=== PATIENT | female | born 1990 | race Caucasian/White ===

== ENCOUNTER 2017-05-01 13:37 | Emergency (ER) | payer MEDICAID ==
[~2017-05-01] VITALS: Ht 182.9 cm; Wt 106.7 kg
[~2017-05-01 13:37] MED LIST: AMBI5TAB PO; CALC250 PO; CIPR500T4 PO; HYDR-4197 PO; HYDR200T42 PO; RIVA10 PO; SERT100 PO
[2017-05-01 13:57] VITALS: BP 137/76; PULSE 84; RESP 16; TEMP 97.8; O2SAT 99
[2017-05-01] MEDS ORDERED: ZOLO100T PO (14:09)
[2017-05-01] MEDS ORDERED: PLAQ200T PO (14:09)
[2017-05-01] MEDS ORDERED: SODIUM CHLOR 0.9% 1000 ML INJ 1,000 ML IV SCH (14:40)
[2017-05-01] MEDS ORDERED: HYDROmorphone HCL PF 1 MG/ML VIAL IVS ONE (14:45)
[2017-05-01] MEDS ORDERED: SODIUM CHLORIDE 0.9% FLUSH 10 ML FLUSH IV FLUSH PRN (14:45)
[2017-05-01] MEDS ORDERED: ONDANSETRON HCL 4 MG/2 ML VIAL IVP ONE (14:45)
--- NOTE | 2017-05-01 14:48 | PD ---
HPI Chief Complaint: Flank/Kidney Pain Time Seen by Provider: 14:40 Travel History International Travel<30 days: No Contact w/Intl Traveler<30days: No Traveled to known affect area: No History of Present Illness HPI 27-year-old female with history of lupus, currently on Plaquenil, presents to the ER today because she has had a week and a half history of nausea, vomiting, abdominal pains, and bilateral back pains. She has been feeling feverish but denies any other issues. She denies any unusual vaginal discharge. Pain is currently rated a 5 at 10. Modifying Factors: None Associated Signs & Symptoms: Abdominal pain, bilateral back pains, nausea and vomiting Risk Factors: None PFSH Past Medical History Hx Anticoagulant Therapy: Yes (LOVENOX) Anemia: Yes Arthritis: Yes Asthma: Yes Autoimmune Disease: Yes (Lupus) Blood Disorders: No Anxiety: No Depression: No Heart Rhythm Problems: No Cancer: No Cardiovascular Problems: No High Cholesterol: No Chest Pain: No Congestive Heart Failure: No COPD: No Cerebrovascular Accident: No Diabetes: No Diminished Hearing: No Endocrine: No Gastrointestinal Disorders: No GERD: No Genitourinary: No Headaches: Yes Hepatitis: No Hiatal Hernia: No Hypertension: Yes (Patient denies ) Immune Disorder: No Implanted Vascular Access Dvce: No Kidney Stones: No Musculoskeletal: Yes Neurologic: No Psychiatric: No Reproductive: No Respiratory: Yes (ASTHMA) Migraines: Yes Renal Failure: No Seizures: No Sickle Cell Disease: No Sleep Apnea: No Thyroid Disease: No Ulcer: No Tetanus Vaccination: < 5 Years Influenza Vaccination: Yes ?: Not LMP: 04/21/17 : 2 Para: 2 Ovarian Cysts: Yes Tubal Ligation: Yes Past Surgical History Abdominal Surgery: Yes AICD: No Arteriovenous Shunt: No Body Medical Devices: Hardware Lt. hip Cardiac Surgery: No Section: Yes (X's 2) Cholecystectomy: Yes Ear Surgery: No Endocrine Surgery: No Eye Surgery: No Genitourinary Surgery: Yes Gynecologic Surgery: Yes (C SECTION, TUBAL LIGATION) Insulin Pump: No Joint Replacement: No Oral Surgery: Yes (TONSILLECTOMY) Pacemaker: No Thoracic Surgery: No Tonsillectomy: Yes Other Surgery: Yes (Cystoscopy, tissue removal arm abscess) Family History Family Hypercholesterolemia: Yes Social History Alcohol Use: Yes (Occ.) Tobacco Use: Yes (1/2 PPD) Substance Use: No Allergies-Medications (Allergen,Severity, Reaction): Coded Allergies: Darvocet-N 100 (Verified Allergy, Severe, 05/01/17) Flexeril (Verified Allergy, Mild, Rash, 05/01/17) Ibuprofen (Verified Allergy, Unknown, Rash, 05/01/17) Lortab (Verified Allergy, Unknown, Rash, 05/01/17) Naproxen (Verified Allergy, Unknown, Rash, 05/01/17) Percocet (Verified Allergy, Unknown, Rash, 05/01/17) Tramadol (Verified Allergy, Unknown, Rash, 05/01/17) Tylenol (Verified Allergy, Unknown, Rash, 05/01/17) Reported Meds & Prescriptions Reported Meds & Active Scripts Active Reported Zoloft (Sertraline HCl) 100 Mg Tab 200 Mg PO DAILY Plaquenil (Hydroxychloroquine Sulfate) 200 Mg Tab 100 Mg PO TID Take with food Review of Systems Except as stated in HPI: all other systems reviewed are Neg Physical Exam Narrative GENERAL: Well-developed young white female patient currently in mild distress. Awake and oriented 3. SKIN: Focused skin assessment warm/dry. HEAD: Atraumatic. Normocephalic. EYES: Pupils equal and round. No scleral icterus. No injection or drainage. ENT: No nasal bleeding or discharge. Mucous membranes pink and moist. NECK: Trachea midline. No JVD. CARDIOVASCULAR: Regular rate and rhythm. No murmur appreciated. RESPIRATORY: No accessory muscle use. Clear to auscultation. Breath sounds equal bilaterally. GASTROINTESTINAL: Abdomen soft, mild suprapubic tenderness without guarding or rebound, nondistended. Hepatic and splenic margins not palpable. MUSCULOSKELETAL: No obvious deformities. No clubbing. No cyanosis. No edema. BACK: Mild bilateral CVA tenderness. No rash. No point tenderness on palpation of the spine. NEUROLOGICAL: Awake and alert. No obvious cranial nerve deficits. Motor grossly within normal limits. Normal speech. PSYCHIATRIC: Appropriate mood and affect; insight and judgment normal. Data Data Last Documented VS Vital Signs Date Time Temp Pulse Resp B/P Pulse Ox O2 Delivery O2 Flow Rate FiO2 05/01/17 15:55 68 14 119/64 100 Room Air 05/01/17 13:57 97.8 Orders Complete Blood Count With Diff (05/01/17 14:40) Comprehensive Metabolic Panel (05/01/17 14:40) Lipase (05/01/17 14:40) Urinalysis - C+S If Indicated (05/01/17 14:40) Ct Abd/Pel W/O Iv Contrast (05/01/17 14:40) Iv Access Insert/Monitor (05/01/17 14:40) Ecg Monitoring (05/01/17 14:40) Oximetry (05/01/17 14:40) Ondansetron Inj (Zofran Inj) (05/01/17 14:45) Sodium Chlor 0.9% 1000 Ml Inj (Ns 1000 M (05/01/17 14:40) Sodium Chloride 0.9% Flush (Ns Flush) (05/01/17 14:45) Hydromorphone Pf Inj (Dilaudid Pf Inj) (05/01/17 14:45) Ed Urine Pregnancytest Poc (05/01/17 14:40) Urine Culture (05/01/17 15:45) Labs Laboratory Tests Test 05/01/17 05/01/17 05/01/17 14:50 15:32 15:45 White Blood Count 9.0 TH/MM3 Red Blood Count 4.52 MIL/MM3 Hemoglobin 13.1 GM/DL Hematocrit 39.4 % Mean Corpuscular Volume 87.1 FL Mean Corpuscular Hemoglobin 29.0 PG Mean Corpuscular Hemoglobin 33.2 % Concent Red Cell Distribution Width 16.8 % Platelet Count 414 TH/MM3 Mean Platelet Volume 8.2 FL Neutrophils (%) (Auto) 84.3 % Lymphocytes (%) (Auto) 10.5 % Monocytes (%) (Auto) 2.7 % Eosinophils (%) (Auto) 0.4 % Basophils (%) (Auto) 2.1 % Neutrophils # (Auto) 7.7 TH/MM3 Lymphocytes # (Auto) 0.9 TH/MM3 Monocytes # (Auto) 0.2 TH/MM3 Eosinophils # (Auto) 0.0 TH/MM3 Basophils # (Auto) 0.2 TH/MM3 CBC Comment DIFF FINAL Differential Comment Sodium Level 142 MEQ/L Potassium Level 3.6 MEQ/L Chloride Level 111 MEQ/L Carbon Dioxide Level 23.5 MEQ/L Anion Gap 8 MEQ/L Blood Urea Nitrogen 8 MG/DL Creatinine 0.65 MG/DL Estimat Glomerular Filtration 109 ML/MIN Rate Random Glucose 85 MG/DL Calcium Level 8.5 MG/DL Total Bilirubin 0.7 MG/DL Aspartate Amino Transf 110 U/L (AST/SGOT) Alanine Aminotransferase 65 U/L (ALT/SGPT) Alkaline Phosphatase 101 U/L Total Protein 7.1 GM/DL Albumin 2.9 GM/DL Lipase 59 U/L Urine Collection Type CLEAN CATCH Urine Color YELLOW Urine Turbidity MOD Urine pH 6.0 Urine Specific [place] 1.020 Urine Protein TRACE mg/dL Urine Glucose (UA) NEG mg/dL Urine Ketones 40 mg/dL Urine Occult Blood MOD Urine Nitrite POS Urine Bilirubin NEG Urine Leukocyte Esterase SMALL Urine RBC 10-14 /hpf Urine WBC 25-49 /hpf Urine WBC Clumps FEW Urine Squamous Epithelial > 8 /hpf Cells Urine Amorphous Sediment FEW Urine Bacteria MOD /hpf Microscopic Urinalysis Comment CULTURE INDICATED Urine Collection Time 1545 MDM Medical Decision Making Medical Screen Exam Complete: Yes Emergency Medical Condition: Yes Medical Record Reviewed: Yes Interpretation(s) Laboratory Tests Test 05/01/17 05/01/17 05/01/17 14:50 15:32 15:45 Neutrophils (%) (Auto) 84.3 % (16.0-70.0) Basophils (%) (Auto) 2.1 % (0.0-2.0) Lymphocytes # (Auto) 0.9 TH/MM3 (1.0-4.8) Chloride Level 111 MEQ/L (98-107) Aspartate Amino Transf 110 U/L (15-37) (AST/SGOT) Alanine Aminotransferase 65 U/L (10-53) (ALT/SGPT) Albumin 2.9 GM/DL (3.4-5.0) Lipase 59 U/L (73-393) Urine Turbidity MOD (CLEAR) Urine Ketones 40 mg/dL (NEG) Urine Occult Blood MOD (NEG) Urine Nitrite POS (NEG) Urine Leukocyte Esterase SMALL (NEG) Urine RBC 10-14 /hpf (0-3) Urine WBC 25-49 /hpf (0-5) Urine WBC Clumps FEW (NONE) Urine Squamous Epithelial > 8 /hpf (0-5) Cells Urine Bacteria MOD /hpf (NONE) Last 24 hours Impressions Abdomen/Pelvis CT 05/01/17 1440 Signed Impressions: Service Date/Time: Monday, May 01, 2017 16:09 - CONCLUSION: 1. 1.5 cm cystic mass right adnexa region. 2. Nonobstructing 3 mm stone left kidney. 3. 1 mm stone middle third right ureter Felix Epperson MD FACR Differential Diagnosis Lower abdominal and back pains, suprapubic tenderness, nausea and vomiting renal colic versus pyelonephritis/UTI versus gastroenteritis versus dehydration versus metabolic issues Narrative Course UA significant for UTI. CT does show a 1 mm stone at the left mid ureter. Patient has been given IV fluids, Dilaudid, and Zofran in the ER. She was also given 1 dose of by mouth antibiotics in the ER. At this point, my plan would be to release her with symptomatic relief or pain, nausea, and antibiotic. She will need to follow-up with primary care physician and urology regarding this issue. Return for any worsening in symptoms as needed. The plan has been discussed with her and she states understanding. Diagnosis Primary Impression: UTI (urinary tract infection) Additional Impression: Renal colic Med/Other Pt SpecificInfo: Prescription(s) given Scripts Phenazopyridine (Pyridium)100 Mg [id number] Mg PO Q8H PRN (DYSURIA) #12 TAB Ref 0 Prov:Shae Giang MD 05/01/17 Ondansetron Odt (Zofran Odt)4 Mg Tab4 Mg SL Q6HR PRN (Nausea/Vomiting) #7 TAB Ref 0 Prov:Shae Giang MD 05/01/17 Sulfamethoxazole-Trimethoprim (Bactrim DS)800-160 Mg Tab1 Tab PO BID #14 TAB Ref 0 Prov:Shae Giang MD 05/01/17 Disposition: 01 DISCHARGE HOME Condition: Stable Shae Giang MD May 01, 2017 14:48
[2017-05-01 14:56] LABS: AUTOMATED NEUTROPHIL # 7.7 TH/MM3 (1.8-7.7); BASOPHIL # 0.2 TH/MM3 (0-0.2); BASOPHIL % 2.1 % (0.0-2.0); EOSINOPHIL % 0.4 % (0.0-4.0); HEMATOCRIT 39.4 % (35.0-46.0); HEMO FLAGS DIFF FINAL; LYMPH % 10.5 % (9.0-44.0); LYMPHOCYTE # 0.9 TH/MM3 (1.0-4.8); MEAN CELL VOLUME 87.1 FL (80.0-100.0); MEAN CORPUSCULAR HGB CONC 33.2 % (32.0-36.0); MONO % 2.7 % (0.0-8.0); NEUT % 84.3 % (16.0-70.0); PLATELET COUNT 414 TH/MM3 (150-450); RED BLOOD COUNT 4.52 MIL/MM3 (4.00-5.30); RED CELL DISTRIBUTION WIDTH 16.8 % (11.6-17.2)
[2017-05-01 15:00] VITALS: O2SAT 99
[2017-05-01 15:55] VITALS: BP 119/64; PULSE 68; RESP 14; O2SAT 100
[2017-05-01 15:58] LABS: CHLORIDE 111 MEQ/L (98-107); POTASSIUM 3.6 MEQ/L (3.5-5.1); SODIUM (NA) 142 MEQ/L (136-145)
[2017-05-01 16:01] LABS: GLUCOSE,URINE NEG (NEG); KETONE, URINE 40 mg/dL (NEG)
[2017-05-01 16:02] LABS: ANION GAP 8 MEQ/L (5-15); BICARBONATE 23.5 MEQ/L (21.0-32.0); BLOOD UREA NITROGEN 8 MG/DL (7-18)
[2017-05-01 16:05] LABS: BLOOD, URINE MOD (NEG); NITRITE,URINE POS (NEG)
[2017-05-01 16:05] LABS: ALT (GPT) 65 U/L (10-53); AST (GOT) 110 U/L (15-37); GLOMERULAR FILTRATION RATE 109 ML/MIN (>89)
[2017-05-01 16:06] LABS: TOTAL BILIRUBIN ADULT 0.7 MG/DL (0.2-1.0)
[2017-05-01 16:08] LABS: ALKALINE PHOSPHATASE 101 U/L (45-117)
[2017-05-01 16:24] LABS: METHOD OF COLLECTION CLEAN CATCH; URINE COLOR YELLOW (YELLW/STRAW)
[2017-05-01 16:25] LABS: COMMENT (UR) CULTURE INDICATED; CULTURE IF INDICATED CULTURE INDICATED; SQUAMOUS EPITHELIAL CELL URINE > 8 /hpf (0-5)
[2017-05-01 16:26] LABS: BACTERIA, URINE MOD /hpf
--- NOTE | 2017-05-01 16:33 | RADHPO ---
EXAM DATE/TIME: 05/01/2017 16:09 [facility] COMPARISON: No previous studies available for comparison. INDICATIONS : Right flank and epigastric pain. ORAL CONTRAST: No oral contrast ingested. RADIATION DOSE: 23.79 CTDIvol (mGy) MEDICAL HISTORY : Hypertension. Anticoagulant therapy SURGICAL HISTORY : section. Cholecystectomy.Tubal ligation. ENCOUNTER: Initial ACUITY: 2 weeks PAIN SCALE: 6/10 LOCATION: Right flank TECHNIQUE: Volumetric scanning of the abdomen and pelvis was performed. Using automated exposure control and ad justment of the mA and/or kV according to patient size, radiation dose was kept as low as reasonably achievable to obtain optimal diagnostic quality images. FINDINGS: LOWER LUNGS: The visualized lower lungs are clear. GE junctional is unremarkable LIVER: Homogeneous density without lesion. There is no dilation of the biliary tree. No calcified gallston es. SPLEEN: Normal size without lesion. PANCREAS: Within normal limits. ADRENAL GLANDS: Within normal limits. KIDNEYS: There is again nonobstructing 2 mm stone or pole left kidney. There is an 81 mm stone middle third o f the right ureter. CECUM : The region of the cecum and terminal ileum appear normal. RETROPERITONEAL: There is no adenopathy PELVIS: 1.5 cm cystic right adnexal mass is noted. Multiple phleboliths are present in the pelvis. ABDOMINAL WALL: Small hernia containing fat just below the umbilicus. BONE WINDOWS: Degenerative changes are seen about both SI joints. CONCLUSION: 1. 1.5 cm cystic mass right adnexa region. 2. Nonobstructing 3 mm stone left kidney. 3. 1 mm stone middle third right ureter Felix Epperson MD FACR on May 01, 2017 at 16:27 Board Certified Radiologist. This report was verified electronically.
[2017-05-01] MEDS ORDERED: SULFAMETHOXAZOLE-TRIMETHOPRIM DS 800-160 MG TAB PO ONE (16:45)
[2017-05-01] MEDS ORDERED: ONDANSETRON HCL 4 MG/2 ML VIAL IV PUSH ONE (16:45)
[2017-05-01] MEDS ORDERED: HYDROmorphone HCL PF 1 MG/ML VIAL IV PUSH ONE (16:45)
[2017-05-01] MEDS ORDERED: BACT800T5 PO (16:49)
[2017-05-01] MEDS ORDERED: ZOFR4TAB3 SL (16:49)
[2017-05-01] MEDS ORDERED: PHEN0.4T PO (16:49)
[2017-05-01 17:35] VITALS: BP 110/70; PULSE 78; RESP 16; O2SAT 98
== END 2017-05-01 17:35 | disposition home or self-care (01) ==
LOC: PHED 13:37
DX: N39.0 Urinary tract infection, site not specified (principal); N23 Unspecified renal colic; B96.20 Unspecified Escherichia coli [E. coli] as the cause of diseases classified elsewhere; J45.909 Unspecified asthma, uncomplicated; M32.9 Systemic lupus erythematosus, unspecified; D64.9 Anemia, unspecified; F17.210 Nicotine dependence, cigarettes, uncomplicated; Z79.01 Long term (current) use of anticoagulants
CPT/HCPCS: 74176; 80053; 81001; 83690; 84703; 85025; 87077; 87086; 87186; 96361; 96374; 96375; 96376; 99285; J1170; J2405; J7030

== ENCOUNTER 2017-06-05 20:12 | Emergency (ER) | payer MEDICAID ==
[~2017-06-05] VITALS: Ht 182.9 cm; Wt 106.0 kg
[~2017-06-05 20:12] MED LIST changes: -AMBI5TAB PO; +BACT800T5 PO; -CALC250 PO; -CIPR500T4 PO; -HYDR-4197 PO; -HYDR200T42 PO; +PHEN0.4T PO; +PLAQ200T PO; -RIVA10 PO; -SERT100 PO; +ZOFR4TAB3 SL; +ZOLO100T PO
[2017-06-05 20:20] VITALS: BP 140/85; PULSE 104; RESP 14; TEMP 98.5; O2SAT 100
[2017-06-05 20:41] VITALS: BP 134/87; PULSE 99; RESP 18; O2SAT 100
--- NOTE | 2017-06-05 20:55 | PD ---
HPI Chief Complaint: Hip Injury Time Seen by Provider: 20:28 Travel History International Travel<30 days: No Contact w/Intl Traveler<30days: No Traveled to known affect area: No History of Present Illness HPI 27-year-old female complains of left hip pain and left thigh pain. Patient fell and landed on the left leg last night. Patient denies any loss of consciousness. Patient denies any headache or neck pain. Patient denies any chest pain or shortness of breath. Patient complained of painful rash on the right heel area for the past several days. Patient denies any abdominal pain. Patient denies any back pain. Patient denies any other extremity injury. Patient has history of lupus. Patient also awaiting oral surgery and on penicillin and another antibiotic. PFSH Past Medical History Hx Anticoagulant Therapy: Yes (LOVENOX) Anemia: Yes Arthritis: Yes Asthma: Yes Autoimmune Disease: Yes (Lupus) Blood Disorders: No Anxiety: No Depression: No Heart Rhythm Problems: No Cancer: No Cardiovascular Problems: No High Cholesterol: No Chest Pain: No Congestive Heart Failure: No COPD: No Cerebrovascular Accident: No Diabetes: No Diminished Hearing: No Endocrine: No Gastrointestinal Disorders: No GERD: No Genitourinary: No Headaches: Yes Hepatitis: No Hiatal Hernia: No Hypertension: Yes (Patient denies ) Immune Disorder: No Implanted Vascular Access Dvce: No Kidney Stones: No Musculoskeletal: Yes Neurologic: No Psychiatric: No Reproductive: No Respiratory: Yes (ASTHMA) Migraines: Yes Renal Failure: No Seizures: No Sickle Cell Disease: No Sleep Apnea: No Thyroid Disease: No Ulcer: No ?: Not LMP: 2 weeks : 2 Para: 2 Ovarian Cysts: Yes Tubal Ligation: Yes Past Surgical History Abdominal Surgery: Yes AICD: No Arteriovenous Shunt: No Body Medical Devices: Hardware Lt. hip Cardiac Surgery: No Section: Yes (X's 2) Cholecystectomy: Yes Ear Surgery: No Endocrine Surgery: No Eye Surgery: No Genitourinary Surgery: Yes Gynecologic Surgery: Yes (C SECTION, TUBAL LIGATION) Insulin Pump: No Joint Replacement: No Oral Surgery: Yes (TONSILLECTOMY) Pacemaker: No Thoracic Surgery: No Tonsillectomy: Yes Other Surgery: Yes (Cystoscopy, tissue removal arm abscess) Family History Family Hypercholesterolemia: Yes Social History Alcohol Use: Yes (Occ.) Tobacco Use: Yes (1/2 PPD) Substance Use: No Allergies-Medications (Allergen,Severity, Reaction): Coded Allergies: Darvocet-N 100 (Verified Allergy, Severe, 06/05/17) Flexeril (Verified Allergy, Mild, Rash, 06/05/17) Ibuprofen (Verified Allergy, Unknown, Rash, 06/05/17) Lortab (Verified Allergy, Unknown, Rash, 06/05/17) Naproxen (Verified Allergy, Unknown, Rash, 06/05/17) Percocet (Verified Allergy, Unknown, Rash, 06/05/17) Tramadol (Verified Allergy, Unknown, Rash, 06/05/17) Tylenol (Verified Allergy, Unknown, Rash, 06/05/17) Reported Meds & Prescriptions Reported Meds & Active Scripts Active Pyridium (Phenazopyridine HCl) 100 Mg Tab 100 Mg PO Q8H PRN Zofran Odt (Ondansetron Odt) 4 Mg Tab 4 Mg SL Q6HR PRN Bactrim DS (Sulfamethoxazole-Trimethoprim) 800-160 Mg Tab 1 Tab PO BID Reported Zoloft (Sertraline HCl) 100 Mg Tab 200 Mg PO DAILY Plaquenil (Hydroxychloroquine Sulfate) 200 Mg Tab 100 Mg PO TID Take with food Review of Systems General / Constitutional: No: Fever Eyes: No: Visual changes HENT: No: Headaches Cardiovascular: No: Chest Pain or Discomfort Respiratory: No: Shortness of Breath Gastrointestinal: No: Abdominal Pain Genitourinary: No: Dysuria Musculoskeletal: Positive: Pain Skin: No Rash Neurologic: No: Weakness Psychiatric: No: Depression Endocrine: No: Polydipsia Hematologic/Lymphatic: No: Easy Bruising Physical Exam Narrative GENERAL: Well-nourished, well-developed patient. SKIN: Focused skin assessment warm/dry. Patient has redness papular rash on the right axilla. Mild tenderness on palpation. No induration noted. HEAD: Normocephalic. EYES: No scleral icterus. No injection or drainage. NECK: Supple, trachea midline. No JVD or lymphadenopathy. CARDIOVASCULAR: Regular rate and rhythm without murmurs, gallops, or rubs. RESPIRATORY: Breath sounds equal bilaterally. No accessory muscle use. GASTROINTESTINAL: Abdomen soft, non-tender, nondistended. MUSCULOSKELETAL: No cyanosis, or edema. BACK: Nontender without obvious deformity. No CVA tenderness. Patient has moderate tenderness and palpation lateral aspect the left hip joint and lateral aspect the left thigh. Limited range of motion of the left hip. Sensorimotor function distally intact. Data Data Last Documented VS Vital Signs Date Time Temp Pulse Resp B/P Pulse Ox O2 Delivery O2 Flow Rate FiO2 06/05/17 20:41 98 18 100 Room Air 06/05/17 20:41 134/87 06/05/17 20:20 98.5 Orders Femur (Ap & Lat/2vws) (06/05/17 20:37) Hip, Uni(Ap&Lat) W Ap Pelvis (06/05/17 20:37) MDM Medical Decision Making Medical Screen Exam Complete: Yes Emergency Medical Condition: Yes Interpretation(s) 21:44 PM. X-ray of the left hip and left femur shows no acute bony injury. Loosening of the surgical nail. Differential Diagnosis Differential diagnosis: Contusion, fracture, dislocation, folliculitis, cellulitis, abscess. Narrative Course 19-year-old female with left hip and left thigh injury. Status post fall. Patient also had painful rash on the right axilla. Diagnosis Primary Impression: Contusion of left hip Qualified Code: S70.02XA - Contusion of left hip, initial encounter Additional Impression: Folliculitis Patient Instructions: General Instructions Med/Other Pt SpecificInfo: Prescription(s) given Scripts Doxycycline Hyclate 100 Mg [id number] Mg PO BID #20 TAB Prov:Sujit Desir MD 06/05/17 Disposition: 01 DISCHARGE HOME Condition: Stable Sujit Desir MD Jun 05, 2017 20:55
[2017-06-05 21:20] VITALS: BP 135/77; PULSE 85; RESP 18; O2SAT 100
--- NOTE | 2017-06-05 21:36 | RADRPT ---
EXAM DATE/TIME: 06/05/2017 20:48 [facility] COMPARISON: HIP LEFT (AP&LAT 2/3VWS) W AP PELVIS, April 25, 2016, 12:32. INDICATIONS : Trauma, fall. MEDICAL HISTORY : None. SURGICAL HISTORY : ORIF left femur. ENCOUNTER: Initial ACUITY: 2 days PAIN SCORE: 8/10 LOCATION: Left pelvis hip. FINDINGS: Evidence for previous pinning of the left hip is noted. Troch nail evident. Alignment is anatomic. There is some evidence for loosening about the troch nail. CONCLUSION: Evidence for loosening about the troch nail. Felix Epperson MD FACR on June 05, 2017 at 21:30 Board Certified Radiologist. This report was verified electronically.
--- NOTE | 2017-06-05 21:38 | RADRPT ---
EXAM DATE/TIME: 06/05/2017 21:10 [facility] COMPARISON: FEMUR LEFT (AP & LAT/2VWS), April 26, 2016, 17:22. INDICATIONS : Trauma, fall. MEDICAL HISTORY : None. SURGICAL HISTORY : ORIF left femur. ENCOUNTER: Initial ACUITY: 2 days PAIN SCORE: 8/10 LOCATION: Left femur. FINDINGS: Troch nail is seen bridging an old trochanteric fracture. There is evidence for loosening with the d istal pin backing out. There is lucency about the proximal intramedullary nail. CONCLUSION: Evidence for loosening as described above. Felix Epperson MD FACR on June 05, 2017 at 21:28 Board Certified Radiologist. This report was verified electronically.
[2017-06-05] MEDS ORDERED: DOXY100T PO (21:50)
== END 2017-06-05 22:16 | disposition home or self-care (01) ==
LOC: PHED 20:12
DX: S70.02XA Contusion of left hip, initial encounter (principal); L73.9 Follicular disorder, unspecified; M79.652 Pain in left thigh; I10 Essential (primary) hypertension; F17.200 Nicotine dependence, unspecified, uncomplicated; Z79.01 Long term (current) use of anticoagulants; Z86.2 Personal history of diseases of the blood and blood-forming organs and certain disorders involving the immune mechanism; Z87.39 Personal history of other diseases of the musculoskeletal system and connective tissue; Z87.09 Personal history of other diseases of the respiratory system; W19.XXXA Unspecified fall, initial encounter
CPT/HCPCS: 73502; 73552; 99283

== ENCOUNTER 2017-06-19 19:27 | Emergency (ER) | payer MEDICAID ==
[~2017-06-19] VITALS: Ht 182.9 cm; Wt 120.1 kg
[~2017-06-19 19:27] MED LIST changes: +DOXY100T PO
[2017-06-19 19:50] VITALS: BP 137/95; PULSE 112; RESP 16; TEMP 98.7; O2SAT 98
[2017-06-19 21:05] VITALS: PULSE 110; RESP 18; O2SAT 98
[2017-06-19 22:00] VITALS: BP 113/60; PULSE 97; RESP 18; O2SAT 100
[2017-06-19] MEDS ORDERED: ONDANSETRON HCL 4 MG/2 ML VIAL IVP ONE (22:45)
[2017-06-19] MEDS ORDERED: SODIUM CHLORIDE 0.9% FLUSH 10 ML FLUSH IVF PRN (22:45)
[2017-06-19] MEDS ORDERED: SODIUM CHLOR 0.9% 1000 ML INJ 1,000 ML IV ONE ×2 (22:45)
[2017-06-19] MEDS ORDERED: HYDROmorphone HCL PF 1 MG/ML VIAL IV PUSH ONE (22:45)
[2017-06-19 23:18] VITALS: RESP 18; O2SAT 100
[2017-06-19 23:24] LABS: AUTOMATED NEUTROPHIL # 9.7 TH/MM3 (1.8-7.7); BASOPHIL # 0.3 TH/MM3 (0-0.2); BASOPHIL % 2.2 % (0.0-2.0); EOSINOPHIL # 0.4 TH/MM3 (0-0.4); EOSINOPHIL % 3.4 % (0.0-4.0); LYMPHOCYTE # 1.2 TH/MM3 (1.0-4.8); MEAN CELL VOLUME 88.4 FL (80.0-100.0); MEAN CORPUSCULAR HEMOGLOBIN 28.6 PG (27.0-34.0); MEAN CORPUSCULAR HGB CONC 32.4 % (32.0-36.0); MONO % 2.3 % (0.0-8.0); NEUT % 82.1 % (16.0-70.0); PLATELET COUNT 352 TH/MM3 (150-450); RED BLOOD COUNT 4.87 MIL/MM3 (4.00-5.30); RED CELL DISTRIBUTION WIDTH 14.4 % (11.6-17.2); WHITE BLOOD COUNT 11.9 TH/MM3 (4.0-11.0)
[2017-06-19 23:25] LABS: HEMO FLAGS DIFF FINAL
[2017-06-19 23:46] LABS: BLOOD, URINE TRACE (NEG); GLUCOSE,URINE NEG (NEG); KETONE, URINE NEG (NEG); NITRITE,URINE NEG (NEG); PH, URINE 5.5 (5.0-8.5)
[2017-06-19 23:51] LABS: MUCUS URINE MOD /lpf (OCC); URINE COLOR AMBER (YELLW/STRAW)
[2017-06-19 23:52] LABS: SQUAMOUS EPITHELIAL CELL URINE 0-5 /hpf (0-5); WBC, URINE 15-19 /hpf (0-5)
[2017-06-19 23:53] LABS: BACTERIA, URINE OCC /hpf; COMMENT (UR) CULTURE INDICATED; CULTURE IF INDICATED CULTURE INDICATED; RBC, URINE 0-3 /hpf (0-3)
[2017-06-19 23:58] VITALS: BP 108/63; PULSE 82; RESP 18; O2SAT 99
[2017-06-20 00:22] LABS: BICARBONATE 23.6 MEQ/L (21.0-32.0)
[2017-06-20 00:24] LABS: POTASSIUM 2.8 MEQ/L (3.5-5.1)
--- NOTE | 2017-06-20 00:29 | PD ---
HPI Chief Complaint: GI Complaint Time Seen by Provider: 22:45 Travel History International Travel<30 days: No Contact w/Intl Traveler<30days: No Traveled to known affect area: No History of Present Illness HPI 27-year-old female presents to the emergency department for complaint of nausea vomiting diarrhea and intermittent abdominal pain and flank pain. Patient has noted symptoms 4 days. Patient denies fever or chills. Patient denies hematemesis coffee-ground emesis melena hematochezia. Patient is concerned because she was diagnosed in April with kidney stone. Patient is concerned that she may have recurrent urinary tract infection. Patient states because of vomiting she has not been able to take her lupus medication. Patient is attempted to remain hydrated with oral hydration but states that because of ongoing symptoms decided to come to the emergency room for further evaluation. Patient has not had any recent antibiotic use except for brief course of antibiotic for UTI diagnosed at time of kidney stone in April. Patient has had no explosive mucoid or bloody diarrhea. Patient's had no constipation. Patient denies melena or hematochezia. Patient has had good urine output. Patient rates discomfort as 8/10 in intensity. Patient unable to identify exacerbating or alleviating factors. Patient does not report any dietary indiscretion, well water ingestion, or foreign travel. Patient is not aware of others with similar GI symptoms. PFSH Past Medical History Narrative Medical Lupus, renal colic, anemia arthritis asthma migraines ovarian cyst tubal ligation and cholecystectomy; tobacco use alcohol use; nursing notes reviewed Hx Anticoagulant Therapy: Yes (LOVENOX) Anemia: Yes Arthritis: Yes Asthma: Yes Autoimmune Disease: Yes (Lupus) Blood Disorders: No Anxiety: No Depression: No Heart Rhythm Problems: No Cancer: No Cardiovascular Problems: No High Cholesterol: No Chest Pain: No Congestive Heart Failure: No COPD: No Cerebrovascular Accident: No Diabetes: No Diminished Hearing: No Endocrine: No Gastrointestinal Disorders: No GERD: No Genitourinary: No Headaches: Yes Hepatitis: No Hiatal Hernia: No Heparin Induced Thrombocytopen: No Hypertension: Yes (Patient denies ) Immune Disorder: No Implanted Vascular Access Dvce: No Kidney Stones: No Musculoskeletal: Yes Neurologic: No Psychiatric: No Reproductive: No Respiratory: Yes (ASTHMA) Migraines: Yes Renal Failure: No Seizures: No Sickle Cell Disease: No Sleep Apnea: No Thyroid Disease: No Ulcer: No Tetanus Vaccination: < 5 Years Influenza Vaccination: Yes ?: Unknown LMP: 06/19/17 : 2 Para: 2 Ovarian Cysts: Yes Tubal Ligation: Yes Past Surgical History Abdominal Surgery: Yes AICD: No Arteriovenous Shunt: No Body Medical Devices: Hardware Lt. hip Cardiac Surgery: No Section: Yes (X's 2) Cholecystectomy: Yes Ear Surgery: No Endocrine Surgery: No Eye Surgery: No Genitourinary Surgery: Yes Gynecologic Surgery: Yes (C SECTION, TUBAL LIGATION) Insulin Pump: No Joint Replacement: No Neurologic Surgery: No Oral Surgery: Yes (TONSILLECTOMY) Pacemaker: No Thoracic Surgery: No Tonsillectomy: Yes Other Surgery: Yes (Cystoscopy, tissue removal arm abscess) Family History Family Hypercholesterolemia: Yes Social History Alcohol Use: Yes (Occ.) Tobacco Use: Yes (1/2 PPD) Substance Use: No Allergies-Medications (Allergen,Severity, Reaction): Coded Allergies: Darvocet-N 100 (Verified Allergy, Severe, 06/19/17) Flexeril (Verified Allergy, Mild, Rash, 06/19/17) Ibuprofen (Verified Allergy, Unknown, Rash, 06/19/17) Lortab (Verified Allergy, Unknown, Rash, 06/19/17) Naproxen (Verified Allergy, Unknown, Rash, 06/19/17) Percocet (Verified Allergy, Unknown, Rash, 06/19/17) Tramadol (Verified Allergy, Unknown, Rash, 06/19/17) Tylenol (Verified Allergy, Unknown, Rash, 06/19/17) Reported Meds & Prescriptions Reported Meds & Active Scripts Active Potassium Chloride ER (Potassium Chloride) 20 Meq Tab 20 Meq PO DAILY Bactrim DS (Sulfamethoxazole-Trimethoprim) 800-160 Mg Tab 1 Tab PO BID Zofran Odt (Ondansetron Odt) 4 Mg Tab 4 Mg SL Q6HR PRN Reported Zoloft (Sertraline HCl) 100 Mg Tab 200 Mg PO DAILY Plaquenil (Hydroxychloroquine Sulfate) 200 Mg Tab 100 Mg PO TID Take with food Review of Systems Except as stated in HPI: all other systems reviewed are Neg General / Constitutional: No: Fever, Chills HENT: No: Congestion Cardiovascular: No: Chest Pain or Discomfort Respiratory: No: Cough, Shortness of Breath Gastrointestinal: Positive: Nausea, Vomiting, Diarrhea, Abdominal Pain, No: Hematemesis, Hematochezia, Loss of Appetite Genitourinary: Positive: Flank Pain, No: Dysuria, Decreased Urinary Output Musculoskeletal: Positive: Myalgias, Arthralgias Skin: No Rash Neurologic: No: Weakness, Dizziness, Syncope, Focal Abnormalities, Coordination Problem Psychiatric: No: Anxiety Hematologic/Lymphatic: No: Lymph Node Enlargement Physical Exam Narrative GENERAL: Well-developed well-nourished female in no acute distress no respiratory distress SKIN: Warm and dry. HEAD: Normocephalic. EYES: No scleral icterus. No injection or drainage. NECK: Supple, trachea midline. No JVD or lymphadenopathy. CARDIOVASCULAR: Regular rate and rhythm without murmurs, gallops, or rubs. RESPIRATORY: Breath sounds equal bilaterally. No accessory muscle use. GASTROINTESTINAL: Abdomen soft, mildly diffusely tender to palpation without guarding or rebound, nondistended. MUSCULOSKELETAL: No cyanosis, or edema. BACK: Nontender without obvious deformity. Bilateral CVA tenderness. Data Data Last Documented VS Vital Signs Date Time Temp Pulse Resp B/P Pulse Ox O2 Delivery O2 Flow Rate FiO2 06/20/17 03:40 82 18 99 06/20/17 03:38 116/62 Room Air 06/19/17 19:50 98.7 Orders Complete Blood Count With Diff (06/19/17 22:45) Basic Metabolic Panel (Bmp) (06/19/17 22:45) Urinalysis - C+S If Indicated (06/19/17 22:45) Iv Access Insert/Monitor (06/19/17 22:45) Ecg Monitoring (06/19/17 22:45) Oximetry (06/19/17 22:45) Ondansetron Inj (Zofran Inj) (06/19/17 22:45) Sodium Chlor 0.9% 1000 Ml Inj (Ns 1000 M (06/19/17 22:45) Sodium Chloride 0.9% Flush (Ns Flush) (06/19/17 22:45) Sodium Chlor 0.9% 1000 Ml Inj (Ns 1000 M (06/19/17 22:45) Hydromorphone Pf Inj (Dilaudid Pf Inj) (06/19/17 22:45) Urine Culture (06/19/17 21:30) Ct Abd/Pel W/O Iv Contrast (06/20/17 ) Ceftriaxone Inj (Rocephin Inj) (06/20/17 00:30) Potassium Chloride (Kcl) (06/20/17 00:30) Potassium Chlor 10 Meq Premix (Kcl 10 Me (06/20/17 00:30) Hydromorphone Pf Inj (Dilaudid Pf Inj) (06/20/17 01:45) Potassium Chloride (Kcl) (06/20/17 03:15) Labs Laboratory Tests Test 06/19/17 21:30 White Blood Count 11.9 TH/MM3 Red Blood Count 4.87 MIL/MM3 Hemoglobin 13.9 GM/DL Hematocrit 43.0 % Mean Corpuscular Volume 88.4 FL Mean Corpuscular Hemoglobin 28.6 PG Mean Corpuscular Hemoglobin 32.4 % Concent Red Cell Distribution Width 14.4 % Platelet Count 352 TH/MM3 Mean Platelet Volume 9.5 FL Neutrophils (%) (Auto) 82.1 % Lymphocytes (%) (Auto) 10.0 % Monocytes (%) (Auto) 2.3 % Eosinophils (%) (Auto) 3.4 % Basophils (%) (Auto) 2.2 % Neutrophils # (Auto) 9.7 TH/MM3 Lymphocytes # (Auto) 1.2 TH/MM3 Monocytes # (Auto) 0.3 TH/MM3 Eosinophils # (Auto) 0.4 TH/MM3 Basophils # (Auto) 0.3 TH/MM3 CBC Comment DIFF FINAL Differential Comment Urine Color [place] Urine Turbidity SLIGHT Urine pH 5.5 Urine Specific [place] 1.029 Urine Protein 100 mg/dL Urine Glucose (UA) NEG mg/dL Urine Ketones NEG mg/dL Urine Occult Blood TRACE Urine Nitrite NEG Urine Bilirubin NEG Urine Leukocyte Esterase TRACE Urine RBC 0-3 /hpf Urine WBC 15-19 /hpf Urine Squamous Epithelial 0-5 /hpf Cells Urine Bacteria OCC /hpf Urine Mucus MOD /lpf Microscopic Urinalysis Comment CULTURE INDICATED Sodium Level 136 MEQ/L Potassium Level 2.8 MEQ/L Chloride Level 103 MEQ/L Carbon Dioxide Level 23.6 MEQ/L Anion Gap 9 MEQ/L Blood Urea Nitrogen 9 MG/DL Creatinine 0.80 MG/DL Estimat Glomerular Filtration 85 ML/MIN Rate Random Glucose 95 MG/DL Calcium Level 9.5 MG/DL [facility] Medical Decision Making Medical Screen Exam Complete: Yes Emergency Medical Condition: Yes Medical Record Reviewed: Yes Interpretation(s) CBC & BMP Diagram 06/19/17 21:30 CT abd/pel: CONCLUSION: 1. No acute finding is identified within the abdomen or pelvis. 2. There are 2 separate 2 mm nonobstructing left renal stones. 3. Fat-containing anterior abdominal wall hernia, stable from the prior study. Santiago Latham MD on June 20, 2017 at 2:13 Board Certified Radiologist. This report was verified electronically. Differential Diagnosis Vomiting, gastroenteritis, dehydration, electrolyte disturbance, food borne illness, viral syndrome, renal colic, obstructive uropathy, UTI, Narrative Course Patient placed on monitor IV access obtained specimens collected and sent for resulting patient administered fluid bolus 2 L Zofran and Dilaudid 1 mg IV Patient identified to have mild white count elevation with left shift by automated differential; urinalysis does show bacteria white blood cells and leukocyte Estrace and small blood cultures indicated; patient given Rocephin 1 g IV piggyback Patient identified to have hypokalemia and given oral replacement and IV replacement Patient taking oral hydration well patient has had a one-time repeat dose of pain medication but has needed no further medication for nausea and/or vomiting. Patient remains afebrile Patient sent for CT abdomen and pelvis in view of abnormal urinalysis and is identified to have 2 left renal stones without evidence of stones in the ureter and no hydronephrosis or hydroureter. Patient feels markedly improved is stable for outpatient management at this time but in view of hypokalemia is given prescription for potassium replacement encouraged to consume potassium containing foods and beverages to her dietary intake. Patient is encouraged to follow up closely with her primary care provider and return to the emergency department for any concerns. Diagnosis Primary Impression: Gastroenteritis Additional Impressions: UTI (urinary tract infection) Qualified Code: N39.0 - Urinary tract infection with hematuria, site unspecified Hypokalemia Referrals: Primary Care Physician 1 day Patient Instructions: General Instructions, Narcotic given in the ED Additional Instructions: Increase fluid hydration Take potassium as prescribed and add potassium containing foods and beverages to dietary intake Follow-up with your primary care provider Return to the emergency department for any concerns or change in condition Complete course of antibiotic as prescribed Med/Other Pt SpecificInfo: Prescription(s) given Scripts Potassium Chloride ER 20 Meq Tab20 Meq PO DAILY #6 TAB Ref 0 Prov:Usha Quiroz MD 06/20/17 Sulfamethoxazole-Trimethoprim (Bactrim DS)800-160 Mg Tab1 Tab PO BID #14 TAB Ref 0 Prov:Usha Quiroz MD 06/20/17 Ondansetron Odt (Zofran Odt)4 Mg Tab4 Mg SL Q6HR PRN (Nausea/Vomiting) #15 TAB Ref 0 Prov:Usha Quiroz MD 06/20/17 Disposition: 01 DISCHARGE HOME Condition: Stable Usha Quiroz MD Jun 20, 2017 00:29
[2017-06-20] MEDS ORDERED: cefTRIAXone INJ 1,000 MG in SODIUM CHLORIDE 0.9% INJ 100 ML IV ONE (00:30)
[2017-06-20] MEDS ORDERED: POTASSIUM CHLORIDE 20 MEQ CONTROLLED RELEASE TAB PO ONE ×2 (00:30→03:15)
[2017-06-20] MEDS ORDERED: POTASSIUM CHLOR 10 MEQ PREMIX 100 ML IV ONE (00:30)
[2017-06-20 01:06] VITALS: BP 114/58; PULSE 84; RESP 18; O2SAT 100
[2017-06-20] MEDS ORDERED: HYDROmorphone HCL PF 1 MG/ML VIAL IV PUSH ONE (01:45)
[2017-06-20 02:17] VITALS: BP 121/62; PULSE 80; RESP 18; O2SAT 99
--- NOTE | 2017-06-20 02:18 | RADRPT ---
EXAM DATE/TIME: 06/20/2017 01:44 [facility] COMPARISON: CT ABDOMEN & PELVIS W/O CONTRAST, May 01, 2017, 16:09. INDICATIONS : Bilateral lower back and flank pain. ORAL CONTRAST: No oral contrast ingested. RADIATION DOSE: 23.03 CTDIvol (mGy) ; Patient body habitus MEDICAL HISTORY : None SURGICAL HISTORY : Cholecystectomy. section.Tubal ligation. ENCOUNTER: Initial ACUITY: 3 days PAIN SCALE: 7/10 LOCATION: Bilateral flank lower back. TECHNIQUE: Volumetric scanning of the abdomen and pelvis was performed. Using automated exposure control and ad justment of the mA and/or kV according to patient size, radiation dose was kept as low as reasonably achievable to obtain optimal diagnostic quality images. DICOM format image data is available electro nically for review and comparison. FINDINGS: LOWER LUNGS: The visualized lower lungs are clear. LIVER: Homogeneous density without lesion. There is no dilation of the biliary tree. The patient is post c holecystectomy clips the gallbladder fossa. SPLEEN: Normal size without lesion. PANCREAS: Within normal limits. KIDNEYS: Normal in size and shape. There is no mass or hydronephrosis. There is a 2 mm nonobstructing stone i n the upper pole and lower pole collecting system on the left. ADRENAL GLANDS: Within normal limits. VASCULAR: There is no aortic aneurysm. BOWEL/MESENTERY: The stomach, small bowel, and colon demonstrate no acute abnormality. There is no free intraperitone al air or fluid. Appendix is normal. ABDOMINAL WALL: There is a fat-containing midline anterior abdominal wall hernia inferiorly. RETROPERITONEUM: There is no lymphadenopathy. BLADDER: No wall thickening or mass. REPRODUCTIVE: Within normal limits. INGUINAL: There is no lymphadenopathy or hernia. MUSCULOSKELETAL: There has been prior left proximal femur ORIF with hardware present causing beam hardening artifact. CONCLUSION: 1. No acute finding is identified within the abdomen or pelvis. 2. There are 2 separate 2 mm nonobstructing left renal stones. 3. Fat-containing anterior abdominal wall hernia, stable from the prior study. Santiago Latham MD on June 20, 2017 at 2:13 Board Certified Radiologist. This report was verified electronically.
[2017-06-20] MEDS ORDERED: ZOFR4TAB3 SL (02:52)
[2017-06-20] MEDS ORDERED: POTA-163 PO (02:52)
[2017-06-20] MEDS ORDERED: BACT800T5 PO (02:52)
[2017-06-20 03:38] VITALS: BP 116/62; PULSE 82; RESP 18; O2SAT 99
== END 2017-06-20 03:41 | disposition home or self-care (01) ==
LOC: PHED 19:27
DX: K52.9 Noninfective gastroenteritis and colitis, unspecified (principal); N39.0 Urinary tract infection, site not specified; B96.89 Other specified bacterial agents as the cause of diseases classified elsewhere; R31.9 Hematuria, unspecified; E87.6 Hypokalemia; N20.0 Calculus of kidney; F17.200 Nicotine dependence, unspecified, uncomplicated; M32.9 Systemic lupus erythematosus, unspecified
CPT/HCPCS: 74176; 80048; 81001; 85025; 87086; 96361; 96365; 96367; 96375; 96376; 99285; J0696; J1170; J2405; J3480; J7030

== ENCOUNTER 2017-07-06 13:59 | Inpatient (IN) | payer MEDICAID ==
[~2017-07-06] VITALS: Ht 182.9 cm; Wt 104.3 kg
[2017-07-06] VITALS (12 sets, daily range): BP systolic 95–147; BP diastolic 65–81; PULSE 105–140; RESP 18–34; TEMP 98.3–98.9; O2SAT 97–100
[~2017-07-06 13:59] MED LIST changes: -DOXY100T PO; -PHEN0.4T PO; +POTA-163 PO; +metroNIDAZOLE 500 MG INJ 100 ML IV SCH
[2017-07-06] MEDS ORDERED: SODIUM CHLOR 0.9% 1000 ML INJ 1,000 ML IV ONE ×3 (14:15→15:45)
[2017-07-06] MEDS ORDERED: ONDANSETRON HCL 4 MG/2 ML VIAL IV PUSH ONE (14:15)
[2017-07-06] MEDS ORDERED: HYDROmorphone HCL PF 1 MG/ML VIAL IV PUSH ONE (14:15)
[2017-07-06] MEDS ORDERED: BIRTH CONTROLE PO (14:17)
--- NOTE | 2017-07-06 14:22 | PD ---
HPI Chief Complaint: generalized weakness Time Seen by Provider: 14:04 Travel History International Travel<30 days: No Contact w/Intl Traveler<30days: No Traveled to known affect area: No History of Present Illness HPI This 27-year-old female says she been sick for about 4 days. She's had persistent vomiting for about 4 days she's been having diarrhea for 3 days. She has a history of lupus. She says that she's been feeling very weak and has some achiness in her arms and legs. She is on Plaquenil for lupus. She does have a history of kidney stones. She did have a similar illness with vomiting and diarrhea about 3 weeks ago. She smokes a pack a day. She says she been coughing up some brown phlegm. She is having some bilateral crampy abdominal pain. She has a history of tubal ligation PFSH Past Medical History Hx Anticoagulant Therapy: Yes (LOVENOX) Anemia: Yes Arthritis: Yes Asthma: Yes Autoimmune Disease: Yes (Lupus) Blood Disorders: No Anxiety: No Depression: No Heart Rhythm Problems: No Cancer: No Cardiovascular Problems: No High Cholesterol: No Chest Pain: No Congestive Heart Failure: No COPD: No Cerebrovascular Accident: No Diabetes: No Diminished Hearing: No Endocrine: No Gastrointestinal Disorders: No GERD: No Genitourinary: No Headaches: Yes Hepatitis: No Hiatal Hernia: No Heparin Induced Thrombocytopen: No Hypertension: Yes (Patient denies ) Immune Disorder: No Implanted Vascular Access Dvce: No Kidney Stones: No Musculoskeletal: Yes Neurologic: No Psychiatric: No Reproductive: No Respiratory: Yes (ASTHMA) Migraines: Yes Renal Failure: No Seizures: No Sickle Cell Disease: No Sleep Apnea: No Thyroid Disease: No Ulcer: No ?: Not LMP: tubal ligation : 2 Para: 2 Ovarian Cysts: Yes Tubal Ligation: Yes Past Surgical History Abdominal Surgery: Yes AICD: No Arteriovenous Shunt: No Body Medical Devices: Hardware Lt. hip Cardiac Surgery: No Section: Yes (X's 2) Cholecystectomy: Yes Ear Surgery: No Endocrine Surgery: No Eye Surgery: No Genitourinary Surgery: Yes Gynecologic Surgery: Yes (C SECTION, TUBAL LIGATION) Insulin Pump: No Joint Replacement: No Neurologic Surgery: No Oral Surgery: Yes (TONSILLECTOMY) Pacemaker: No Thoracic Surgery: No Tonsillectomy: Yes Other Surgery: Yes (Cystoscopy, tissue removal arm abscess) Family History Family Hypercholesterolemia: Yes Social History Alcohol Use: Yes (Occ.) Tobacco Use: Yes (1/2 PPD) Substance Use: No Allergies-Medications (Allergen,Severity, Reaction): Coded Allergies: Darvocet-N 100 (Verified Allergy, Severe, 07/06/17) Flexeril (Verified Allergy, Mild, Rash, 07/06/17) Ibuprofen (Verified Allergy, Unknown, Rash, 07/06/17) Lortab (Verified Allergy, Unknown, Rash, 07/06/17) Naproxen (Verified Allergy, Unknown, Rash, 07/06/17) Percocet (Verified Allergy, Unknown, Rash, 07/06/17) Tramadol (Verified Allergy, Unknown, Rash, 07/06/17) Tylenol (Verified Allergy, Unknown, Rash, 07/06/17) Reported Meds & Prescriptions Reported Meds & Active Scripts Active Reported [ controle] 1 Tab PO DAILY Zoloft (Sertraline HCl) 100 Mg Tab 200 Mg PO DAILY Plaquenil (Hydroxychloroquine Sulfate) 200 Mg Tab 100 Mg PO TID Take with food Review of Systems General / Constitutional: No: Fever, Chills Eyes: No: Diploplia, Blurred Vision HENT: Positive: Lightheadedness Cardiovascular: Positive: Palpitations, Tachycardia, No: Chest Pain or Discomfort Respiratory: Positive: Cough Gastrointestinal: Positive: Vomiting, Diarrhea, Abdominal Pain Genitourinary: No: Urgency, Frequency Musculoskeletal: No: Myalgias, Arthralgias Neurologic: Positive: Weakness Endocrine: No: Heat Intolerance, Cold Intolerance Hematologic/Lymphatic: No: Easy Bruising Physical Exam Narrative GENERAL: Well-developed female. Heart rate is initially 1:30 SKIN: Focused skin assessment warm/dry. HEAD: Atraumatic. Normocephalic. EYES: Pupils equal and round. No scleral icterus. No injection or drainage. ENT: No nasal bleeding or discharge. Mucous membranes dry NECK: Trachea midline. No JVD. CARDIOVASCULAR: Rapid Regular rate and rhythm. No murmur appreciated. RESPIRATORY: No accessory muscle use. Clear to auscultation. Breath sounds equal bilaterally. GASTROINTESTINAL: Abdomen soft, non-tender, nondistended. Hepatic and splenic margins not palpable. MUSCULOSKELETAL: No obvious deformities. No clubbing. No cyanosis. No edema. NEUROLOGICAL: Awake and alert. No obvious cranial nerve deficits. Motor grossly within normal limits. Normal speech. PSYCHIATRIC: Appropriate mood and affect; insight and judgment normal. Data Data Last Documented VS Vital Signs Date Time Temp Pulse Resp B/P Pulse Ox O2 Delivery O2 Flow Rate FiO2 07/06/17 15:45 113 20 110/66 97 07/06/17 14:13 98.9 Orders Complete Blood Count With Diff (07/06/17 14:12) Comprehensive Metabolic Panel (07/06/17 14:12) Urinalysis - C+S If Indicated (07/06/17 14:12) Magnesium (Mg) (07/06/17 14:12) Chest, Single Ap (07/06/17 14:12) Sodium Chlor 0.9% 1000 Ml Inj (Ns 1000 M (07/06/17 14:15) Ondansetron Inj (Zofran Inj) (07/06/17 14:15) Hydromorphone Pf Inj (Dilaudid Pf Inj) (07/06/17 14:15) Sodium Chlor 0.9% 1000 Ml Inj (Ns 1000 M (07/06/17 14:30) Blood Culture (07/06/17 14:48) Ct Abd/Pel W Iv Contrast(Rout) (07/06/17 14:48) Lactic Acid Sepsis Protocol (07/06/17 14:48) Potassium Chloride (Kcl) (07/06/17 15:00) Electrocardiogram (07/06/17 14:07) Enteric Path (Stool) (07/06/17 15:20) C Diff Toxin Pcr (07/06/17 15:20) Iohexol 350 Inj (Omnipaque 350 Inj) (07/06/17 15:26) Sodium Chlor 0.9% 1000 Ml Inj (Ns 1000 M (07/06/17 15:45) Piperacil-Tazo 4.5 Gm Premix (Zosyn 4.5 (07/06/17 16:00) Metronidazole 500 Mg Inj (Flagyl 500 Mg (07/06/17 16:00) Admit Order (Ed Use Only) (07/06/17 15:59) Labs Laboratory Tests Test 07/06/17 07/06/17 14:15 15:05 White Blood Count 26.4 TH/MM3 Red Blood Count 5.40 MIL/MM3 Hemoglobin 15.1 GM/DL Hematocrit 47.5 % Mean Corpuscular Volume 87.9 FL Mean Corpuscular Hemoglobin 27.9 PG Mean Corpuscular Hemoglobin 31.8 % Concent Red Cell Distribution Width 14.8 % Platelet Count 444 TH/MM3 Mean Platelet Volume 9.0 FL Neutrophils (%) (Auto) 94.7 % Lymphocytes (%) (Auto) 1.5 % Monocytes (%) (Auto) 0.4 % Eosinophils (%) (Auto) 2.9 % Basophils (%) (Auto) 0.5 % Neutrophils # (Auto) 25.0 TH/MM3 Lymphocytes # (Auto) 0.4 TH/MM3 Monocytes # (Auto) 0.1 TH/MM3 Eosinophils # (Auto) 0.8 TH/MM3 Basophils # (Auto) 0.1 TH/MM3 CBC Comment AUTO DIFF Differential Comment AUTO DIFF CONFIRMED Sodium Level 129 MEQ/L Potassium Level 3.2 MEQ/L Chloride Level 97 MEQ/L Carbon Dioxide Level 18.5 MEQ/L Anion Gap 14 MEQ/L Blood Urea Nitrogen 15 MG/DL Creatinine 1.20 MG/DL Estimat Glomerular Filtration 53 ML/MIN Rate Random Glucose 101 MG/DL Calcium Level 9.5 MG/DL Magnesium Level 1.7 MG/DL Total Bilirubin 1.2 MG/DL Aspartate Amino Transf 16 U/L (AST/SGOT) Alanine Aminotransferase 22 U/L (ALT/SGPT) Alkaline Phosphatase 97 U/L Total Protein 7.9 GM/DL Albumin 2.7 GM/DL Lactic Acid Level 4.2 mmol/L MDM Medical Decision Making Medical Screen Exam Complete: Yes Emergency Medical Condition: Yes Medical Record Reviewed: Yes Differential Diagnosis Differential includes C. difficile, gastroenteritis, dehydration, sepsis Narrative Course Hemoglobin is 15 white count is 26,000. His sodium is 129 with potassium of 3.2. She has been given an initial dose of Zosyn and Flagyl. She has been given repeated doses of normal saline. Her lactate is elevated at 4. Lab work is suggestive of sepsis. Stool studies have been ordered but she has not had a bowel movement here. She'll be admitted Sepsis Criteria SIRS Criteria (2 or more): Heart rate over 90, WBC > 51666, < 4000 or > 10% bands Severe Sepsis (+one): Lactate >2 Diagnosis Primary Impression: Dehydration Additional Impression: Sepsis Qualified Code: A41.9 - Sepsis, due to unspecified organism Admitting Information Admitting Physician Requests: Admit Henry Da Silva MD Jul 06, 2017 14:22
[2017-07-06 14:29] LABS: BASOPHIL # 0.1 TH/MM3 (0-0.2); BASOPHIL % 0.5 % (0.0-2.0); EOSINOPHIL # 0.8 TH/MM3 (0-0.4); EOSINOPHIL % 2.9 % (0.0-4.0); HEMATOCRIT 47.5 % (35.0-46.0); LYMPH % 1.5 % (9.0-44.0); LYMPHOCYTE # 0.4 TH/MM3 (1.0-4.8); MEAN CELL VOLUME 87.9 FL (80.0-100.0); MEAN CORPUSCULAR HEMOGLOBIN 27.9 PG (27.0-34.0); MEAN CORPUSCULAR HGB CONC 31.8 % (32.0-36.0); MONO % 0.4 % (0.0-8.0); NEUT % 94.7 % (16.0-70.0); PLATELET COUNT 444 TH/MM3 (150-450); RED CELL DISTRIBUTION WIDTH 14.8 % (11.6-17.2); WHITE BLOOD COUNT 26.4 TH/MM3 (4.0-11.0)
[2017-07-06 14:31] LABS: HEMO FLAGS AUTO DIFF
[2017-07-06 14:41] LABS: CHLORIDE 97 MEQ/L (98-107); POTASSIUM 3.2 MEQ/L (3.5-5.1); SODIUM (NA) 129 MEQ/L (136-145)
--- NOTE | 2017-07-06 14:41 | RADRPT ---
EXAM DATE/TIME: 07/06/2017 14:24 [facility] COMPARISON: CHEST SINGLE AP, April 26, 2016, 18:28. INDICATIONS : Chest pain and productive cough for four days. MEDICAL HISTORY : Hypertension. Anticoagulant therapy SURGICAL HISTORY : ORIF left femur, section. Cholecystectomy.Tubal ligation ENCOUNTER: Initial ACUITY: 4 - 6 days PAIN SCORE: 10/10 LOCATION: Left chest FINDINGS: A single view of the chest demonstrates the lungs to be symmetrically aerated without evidence of mas s, infiltrate or effusion. The cardiomediastinal contours are unremarkable. Osseous structures are intact. Old healed left-sided rib fractures. CONCLUSION: No acute disease. No significant change has occurred. Federico Chapin MD on July 06, 2017 at 14:39 Board Certified Radiologist. This report was verified electronically.
[2017-07-06 14:47] LABS: ANION GAP 14 MEQ/L (5-15); BICARBONATE 18.5 MEQ/L (21.0-32.0); BLOOD UREA NITROGEN 15 MG/DL (7-18); MAGNESIUM 1.7 MG/DL (1.5-2.5)
[2017-07-06 14:50] LABS: ALT (GPT) 22 U/L (10-53); AST (GOT) 16 U/L (15-37); GLOMERULAR FILTRATION RATE 53 ML/MIN (>89)
[2017-07-06 14:51] LABS: TOTAL BILIRUBIN ADULT 1.2 MG/DL (0.2-1.0)
[2017-07-06 14:52] LABS: SCAN/DIFF AUTO DIFF CONFIRMED
[2017-07-06 14:53] LABS: ALKALINE PHOSPHATASE 97 U/L (45-117)
[2017-07-06] MEDS ORDERED: POTASSIUM CHLORIDE 20 MEQ CONTROLLED RELEASE TAB PO ONE (15:00)
[2017-07-06] MEDS ORDERED: IOHEXOL 350 MG/ML 10 ML VIAL (for RAD DIAG) IV ONE (15:26)
--- NOTE | 2017-07-06 15:38 | RADRPT ---
EXAM DATE/TIME: 07/06/2017 15:17 [place] COMPARISON: CT ABDOMEN & PELVIS W/O CONTRAST, June 20, 2017, 1:44. CT ABDOMEN & PELVIS W CONTRAST, March 04 4, 16:37. INDICATIONS : Lower abdominal pain. Nausea, vomiting and diarrhea x 4 days. IV CONTRAST: 85 cc Omnipaque 350 (iohexol) IV ORAL CONTRAST: No oral contrast ingested. RADIATION DOSE: 18.70 CTDIvol (mGy) MEDICAL HISTORY : Lupus. Renal calculi. Hypertension.Asthma. SURGICAL HISTORY : Tubal ligation. Cholecystectomy. section.Left hip replacement. ENCOUNTER: Initial ACUITY: 4 - 6 days PAIN SCALE: 8/10 LOCATION: Bilateral lower quadrant TECHNIQUE: Volumetric scanning of the abdomen and pelvis was performed. Using automated exposure control and ad justment of the mA and/or kV according to patient size, radiation dose was kept as low as reasonably achievable to obtain optimal diagnostic quality images. DICOM format image data is available electro nically for review and comparison. FINDINGS: LOWER LUNGS: The visualized lower lungs are clear. LIVER: Homogeneous density without lesion. There is no dilation of the biliary tree. No gallbladder, surgi ulises removed.. SPLEEN: Normal size without lesion. PANCREAS: Within normal limits. KIDNEYS: Normal in size and shape. There is no mass or hydronephrosis. Tiny 2 mm stone lower pole left kidney not causing obstruction. ADRENAL GLANDS: Within normal limits. VASCULAR: There is no aortic aneurysm. BOWEL/MESENTERY: The stomach, small bowel, and colon demonstrate no acute abnormality. There is no free intraperitone al air or fluid. No inflammatory changes. ABDOMINAL WALL: Small low anterior abdominal wall hernia containing mesenteric fat. No change. RETROPERITONEUM: There is no lymphadenopathy. BLADDER: No wall thickening or mass. REPRODUCTIVE: Within normal limits. INGUINAL: There is no lymphadenopathy or hernia. MUSCULOSKELETAL: Within normal limits for patient age. CONCLUSION: Stable CT scan of the pelvis compared to the prior study of 06/20/2017. No acute abdominal or pelvic p athology. Tiny 2 mm stone lower pole left kidney not causing obstruction. Federico Chapin MD on July 06, 2017 at 15:33 Board Certified Radiologist. This report was verified electronically.
[2017-07-06] MEDS ORDERED: metroNIDAZOLE 500 MG INJ 100 ML IV ONE (16:00)
[2017-07-06] MEDS ORDERED: PIPERACIL-TAZO 4.5 GM PREMIX 100 ML IV ONE (16:00)
[2017-07-06 17:05] LABS: LACTIC ACID GHOST NOT REPORTABLE
[2017-07-06] MEDS ORDERED: VANCOMYCIN INJ 1,000 MG in SODIUM CHLOR 0.9% 250 ML INJ 250 ML IV SCH (17:15)
[2017-07-06] MEDS ORDERED: Vancomycin Consult Pharmacy 1 EA OTHER SCH (17:15)
--- NOTE | 2017-07-06 17:24 | HHI.HP ---
[facility] No Primary Care Physician Admission Diagnosis DEHYDRATION, SEPSIS Diagnoses: Chief Complaint: weakness and diarrhea Travel History International Travel<30 Days: No Contact w/Intl Traveler <30 Da: No Traveled to Known Affected Are: No History of Present Illness This 27-year-old female says she been sick for about 4 days with diarrhea, nausea and vomiting. She has a history of lupus and takes plaquenil. She has evidence of sepsis and has metabolic acidosis. She has hyponatremia and is very dehydrated. Patient says her stomach hurts and she has some nontender abdominal pain. She can only take morphine and Dilaudid per her report. She has multiple drug allergies. Patient's been admitted to the hospital due to signs and symptoms of sepsis and dehydration Review of Systems Constitutional: DENIES: Diaphoretic episodes, Fatigue, Fever, Weight gain, Weight loss, Chills, Dizziness, Change in appetite, Night Sweats Endocrine: DENIES: Abnorml menstrual pattern, Heat/cold intolerance, Polydipsia , Polyuria, Polyphagia Eyes: DENIES: Blurred vision, Diplopia, Eye inflammation, Eye pain, Vision loss , Photosensitivity, Double Vision Ears, nose, mouth, throat: DENIES: Tinnitus, Hearing loss, Vertigo, Nasal discharge, Oral lesions, Throat pain, Hoarseness, Ear Pain, Running Nose, Epistaxis, Sinus Pain, Toothache, Odynophagia Respiratory: DENIES: Apneas, Cough, Snoring, Wheezing, Hemoptysis, Sputum production, Shortness of breath Cardiovascular: DENIES: Chest pain, Palpitations, Syncope, Dyspnea on Exertion , PND, Lower Extremity Edema, Orthopnea, Claudication Gastrointestinal: DENIES: Abdominal pain, Black stools, Bloody stools, Constipation, Diarrhea, Nausea, Vomiting, Difficulty Swallowing, Anorexia Genitourinary: DENIES: Abnormal vaginal bleeding, Dysmenorrhea, Dyspareunia, Sexual dysfunction, Urinary frequency, Urinary incontinence, Urgency, Hematuria , Dysuria, Nocturia, Vaginal discharge Musculoskeletal: DENIES: Joint pain, Muscle aches, Stiffness, Joint Swelling, Back pain, Neck pain Integumentary: DENIES: Abnormal pigmentation, Pruritus, Rash, Nail changes, Breast masses, Breast skin changes, Nipple discharge Hematologic/lymphatic: DENIES: Bruising, Lymphadenopathy Immunologic/allergic: DENIES: Eczema, Urticaria Neurologic: DENIES: Abnormal gait, Headache, Localized weakness, Paresthesias, Seizures, Speech Problems, Tremor, Poor Balance Psychiatric: DENIES: Anxiety, Confusion, Mood changes, Depression, Hallucinations, Agitation, Suicidal Ideation, Homicidal Ideation, Delusions Past Family Social History Past Medical History Lupus Depression Past Surgical History c section tubal ligation Reported Medications reviewed in the emr Allergies: Coded Allergies: Darvocet-N 100 (Verified Allergy, Severe, 07/06/17) Flexeril (Verified Allergy, Mild, Rash, 07/06/17) Ibuprofen (Verified Allergy, Unknown, Rash, 07/06/17) Lortab (Verified Allergy, Unknown, Rash, 07/06/17) Naproxen (Verified Allergy, Unknown, Rash, 07/06/17) Percocet (Verified Allergy, Unknown, Rash, 07/06/17) Tramadol (Verified Allergy, Unknown, Rash, 07/06/17) Tylenol (Verified Allergy, Unknown, Rash, 07/06/17) Active Ordered Medications reviewed in the emr Family History No lupus father in am Social History Lives with family 1/2 tobacco, no etoh Physical Exam Vital Signs Vital Signs Date Time Temp Pulse Resp B/P Pulse Ox O2 Delivery O2 Flow Rate FiO2 07/06/17 16:38 110 20 107/66 97 07/06/17 15:45 113 20 110/66 97 07/06/17 14:13 98.9 140 20 95/69 100 Physical Exam GENERAL: This is a well-nourished, well-developed patient,dry membranes SKIN: No rashes, ecchymoses or lesions. Cool and dry. HEAD: Atraumatic. Normocephalic. No temporal or scalp tenderness. EYES: Pupils equal round and reactive. Extraocular motions intact. No scleral icterus. No injection or drainage. ENT: Nose without bleeding, purulent drainage or septal hematoma. Throat without erythema, tonsillar hypertrophy or exudate. Uvula midline. Airway patent. NECK: Trachea midline. No JVD or lymphadenopathy. Supple, nontender, no meningeal signs. CARDIOVASCULAR: tachycardia rhythm without murmurs, gallops, or rubs. RESPIRATORY: Clear to auscultation. Breath sounds equal bilaterally. No wheezes , rales, or rhonchi. GASTROINTESTINAL: Abdomen soft, non-tender, nondistended. No hepato-splenomegaly , or palpable masses. No guarding. MUSCULOSKELETAL: Extremities without clubbing, cyanosis, or edema. No joint tenderness, effusion, or edema noted. No calf tenderness. Negative Homans sign bilaterally. NEUROLOGICAL: Awake and alert. Cranial nerves II through XII intact. Motor and sensory grossly within normal limits. Five out of 5 muscle strength in all muscle groups. Normal speech. Laboratory Laboratory Tests Test 07/06/17 07/06/17 14:15 15:05 White Blood Count 26.4 Red Blood Count 5.40 Hemoglobin 15.1 Hematocrit 47.5 Mean Corpuscular Volume 87.9 Mean Corpuscular Hemoglobin 27.9 Mean Corpuscular Hemoglobin 31.8 Concent Red Cell Distribution Width 14.8 Platelet Count 444 Mean Platelet Volume 9.0 Neutrophils (%) (Auto) 94.7 Lymphocytes (%) (Auto) 1.5 Monocytes (%) (Auto) 0.4 Eosinophils (%) (Auto) 2.9 Basophils (%) (Auto) 0.5 Neutrophils # (Auto) 25.0 Lymphocytes # (Auto) 0.4 Monocytes # (Auto) 0.1 Eosinophils # (Auto) 0.8 Basophils # (Auto) 0.1 CBC Comment AUTO DIFF Differential Comment AUTO DIFF CONFIRMED Sodium Level 129 Potassium Level 3.2 Chloride Level 97 Carbon Dioxide Level 18.5 Anion Gap 14 Blood Urea Nitrogen 15 Creatinine 1.20 Estimat Glomerular Filtration 53 Rate Random Glucose 101 Calcium Level 9.5 Magnesium Level 1.7 Total Bilirubin 1.2 Aspartate Amino Transf 16 (AST/SGOT) Alanine Aminotransferase 22 (ALT/SGPT) Alkaline Phosphatase 97 Total Protein 7.9 Albumin 2.7 Lactic Acid Level 4.2 Date/Time Procedure Status Source Growth 07/06/17 15:05 Aerobic Blood Culture Received Blood Peripheral Pending 07/06/17 15:05 Anaerobic Blood Culture Received Blood Peripheral Pending Result Diagram: 07/06/17 1415 07/06/17 1415 Imaging Last Impressions Abdomen/Pelvis CT 07/06/17 1448 Signed Impressions: Service Date/Time: June 15:17 - CONCLUSION: Stable CT scan of the pelvis compared to the prior study of 06/20/2017. No acute abdominal or pelvic pathology. Tiny 2 mm stone lower pole left kidney not causing obstruction. Federico Chapin MD Chest X-Ray 07/06/17 1412 Signed Impressions: Service Date/Time: June 14:24 - CONCLUSION: No acute disease. No significant change has occurred. Federico Chapin MD Septic Shock Reassessment Heart: Other (tachycardia) Lungs: Clear Skin: Warm Peripheral Pulses: Bounding Right Radial Bounding Left Radial Bounding Right Popliteal Bounding Left Popliteal Bounding Right Dorsalis Pedis Bounding Left Dorsalis Pedis Bounding Right Posterior Tibial Bounding Left Posterior Tibial Assessment and Plan Problem List: (1) Sepsis ICD Code: A41.9 Status: Acute Plan: With lactic acid, leukocytosis, and ARf source unclear Empiric abx flagy, Vanco and rocephin urine pending check c.diff with metabolic acidosis (lactic acid elevated) (2) Dehydration ICD Code: E86.0 Status: Acute Plan: IV fluids likely from nausea/vomiting/diarrhea (3) NICK (acute kidney injury) ICD Code: N17.9 Status: Acute Plan: Will follow after IVF (4) Hyponatremia ICD Code: E87.1 Status: Acute Plan: Likely due to dehydration will follow in am (5) Diarrhea ICD Code: R19.7 Status: Acute Plan: May be c diff flagyl empiric (6) Tachycardia ICD Code: R00.0 Status: Acute Plan: Likely from sepsis and dehydration Physician Certification 2 Midnight Certification Type: Admission for Inpatient Services Order for Inpatient Services The services are ordered in accordance with Medicare regulations or non- Medicare payer requirements, as applicable. In the case of services not specified as inpatient-only, they are appropriately provided as inpatient services in accordance with the 2-midnight benchmark. Estimated LOS (days): 3 3 days is the estimated time the patient will need to remain in the hospital, assuming treatment plan goals are met and no additional complications. Post-Hospital Plan: Home Problem Qualifiers (1) Sepsis: Qualified Code: A41.9 - Sepsis, due to unspecified organism Rosalind Singh MD Jul 06, 2017 17:24
[2017-07-06] MEDS: HYDROmorphone HCL PF 2 MG/ML VIAL IVS PRN ×2 (17:32→22:19)
[2017-07-06 18:26] LABS: CREATINE KINASE 24 U/L (26-192)
[2017-07-06] MEDS: SODIUM CHLOR 0.9% 1000 ML INJ 1,000 ML IV SCH (18:30)
[2017-07-06] MEDS: cefTRIAXone INJ 1,000 MG in SODIUM CHLORIDE 0.9% INJ 100 ML IV SCH (18:31)
[2017-07-06] MEDS ORDERED: MISC INFORMATION OTHER ONE (19:00)
[2017-07-06] MEDS ORDERED: DEXTROSE 50% IN WATER 50 ML VIAL(D50) IV PUSH PRN (19:00)
[2017-07-06] MEDS ORDERED: INSULIN REGULAR 100 UNITS/100 ML NS ALGORITHM 1 IV PRN ×2 (19:00)
[2017-07-06 19:50] LABS: BLOOD, URINE NEG (NEG); GLUCOSE,URINE NEG (NEG); KETONE, URINE NEG (NEG); NITRITE,URINE NEG (NEG); PH, URINE 5.5 (5.0-8.5)
[2017-07-06 19:54] LABS: URINE COLOR AMBER (YELLW/STRAW)
[2017-07-06 19:58] LABS: BACTERIA, URINE OCC /hpf; COMMENT (UR) CULTURE INDICATED; CULTURE IF INDICATED CULTURE INDICATED; RBC, URINE 0-3 /hpf (0-3)
[2017-07-06] MEDS: VANCOMYCIN INJ 1,500 MG in SODIUM CHLORID 0.9% 500 ML INJ 500 ML IV SCH (20:04)
[2017-07-06] MEDS: ONDANSETRON HCL 4 MG/2 ML VIAL IVP PRN (22:21)
[2017-07-06] MEDS: diphenhydrAMINE HCL 50 MG/ML VIAL IV PUSH PRN (22:58)
[2017-07-07] VITALS (20 sets, daily range): BP systolic 92–171; BP diastolic 48–79; PULSE 94–124; RESP 20–45; TEMP 96.5–99.7; O2SAT 95–98
[2017-07-07] MEDS ORDERED: metroNIDAZOLE 500 MG INJ 100 ML IV SCH ×2 (01:00)
[2017-07-07] MEDS: HYDROmorphone HCL PF 2 MG/ML VIAL IVS PRN ×6 (02:25→22:50)
[2017-07-07] MEDS: SODIUM CHLOR 0.9% 1000 ML INJ 1,000 ML IV SCH ×3 (02:26→23:01)
[2017-07-07] MEDS ORDERED: diphenhydrAMINE HCL 50 MG/ML VIAL IV PUSH ONE (03:00)
[2017-07-07] MEDS ORDERED: methylPREDNISolone SOD SUCC 125 MG/2 ML VIAL IV PUSH ONE (03:00)
[2017-07-07 04:48] LABS: HEMATOCRIT 33.3 % (35.0-46.0); MEAN CELL VOLUME 87.7 FL (80.0-100.0); MEAN CORPUSCULAR HEMOGLOBIN 28.6 PG (27.0-34.0); MEAN CORPUSCULAR HGB CONC 32.6 % (32.0-36.0); PLATELET COUNT 296 TH/MM3 (150-450); RED CELL DISTRIBUTION WIDTH 14.3 % (11.6-17.2); WHITE BLOOD COUNT 14.8 TH/MM3 (4.0-11.0)
[2017-07-07 04:55] LABS: HEMO FLAGS AUTO DIFF
[2017-07-07 05:13] LABS: BANDS 5 % (0-6); EOSINOPHILS 4 % (0-4); NEUTROPHIL # MANUAL DIFF 12.9 TH/MM3 (1.8-7.7); PLATELET ESTIMATE SMEAR NORMAL (NORMAL); PLATELET MORPHOLOGY NORMAL (NORMAL); POLYS (SEG NEUTROPHILS) 82 % (16-70); SCAN/DIFF FINAL DIFF MANUAL; WBC DIFF SAMPLE 100
[2017-07-07 05:15] LABS: BICARBONATE 19.7 MEQ/L (21.0-32.0)
[2017-07-07] MEDS: ONDANSETRON HCL 4 MG/2 ML VIAL IVP PRN ×2 (06:50→10:39)
[2017-07-07] MEDS: VANCOMYCIN INJ 1,500 MG in SODIUM CHLORID 0.9% 500 ML INJ 500 ML IV SCH ×2 (08:13→20:16)
[2017-07-07] MEDS: diphenhydrAMINE HCL 50 MG/ML VIAL IV PUSH PRN ×3 (08:14→20:25)
[2017-07-07] MEDS ORDERED: AMBI10TA PO (14:41)
--- NOTE | 2017-07-07 15:19 | HHI.PR ---
Subjective Remarks Follow-up severe sepsis 07/07/17-patient seen and examined, no diarrhea 2 days. Complains of back pain. Currently afebrile Objective Vitals Vital Signs Date Time Temp Pulse Resp B/P Pulse Ox O2 Delivery O2 Flow Rate FiO2 07/07/17 14:15 98 35 111/56 07/07/17 14:15 98 07/07/17 13:30 96 45 07/07/17 13:10 99.4 94 38 108/56 07/07/17 12:40 94 07/07/17 12:00 107 07/07/17 10:16 99.3 96 24 105/48 95 07/07/17 10:00 96 07/07/17 09:03 106 32 116/58 96 07/07/17 09:00 108 07/07/17 08:30 106 27 116/50 96 07/07/17 08:00 107 07/07/17 07:27 99.1 120 39 133/78 07/07/17 05:03 117 07/07/17 04:11 122 34 131/53 98 07/07/17 04:06 99.7 124 24 92/51 97 07/07/17 04:00 122 07/07/17 02:55 31 07/07/17 01:11 122 26 171/61 97 07/07/17 00:00 119 07/07/17 00:00 120 36 144/76 98 07/06/17 22:30 108 31 99 07/06/17 22:11 108 33 137/69 100 07/06/17 21:46 108 34 147/73 100 07/06/17 21:34 98.6 20 129/65 99 07/06/17 21:30 109 07/06/17 20:15 105 18 121/74 99 Room Air 07/06/17 19:00 109 97 Room Air 07/06/17 19:00 98.3 109 18 107/71 97 Room Air 07/06/17 18:31 120 20 136/70 98 07/06/17 17:36 105 20 109/81 97 07/06/17 16:38 110 20 107/66 97 07/06/17 15:45 113 20 110/66 97 I/O 07/06/17 07/06/17 07/06/17 07/07/17 07/07/17 07/07/17 06:59 14:59 22:59 06:59 14:59 22:59 Intake Total 965 ml 2065 ml 2891 ml Output Total 550 ml 1820 ml Balance 415 ml 2065 ml 1071 ml Intake Oral 240 ml 1275 ml 1280 ml IV Total 725 ml 790 ml 1611 ml Output Urine Total 550 ml 1820 ml # Voids 1 2 # Bowel Movements 0 0 0 Result Diagram: 07/07/17 0423 07/07/17 0423 Imaging Last Impressions Abdomen/Pelvis CT 07/06/17 1448 Signed Impressions: Service Date/Time: June 15:17 - CONCLUSION: Stable CT scan of the pelvis compared to the prior study of 06/20/2017. No acute abdominal or pelvic pathology. Tiny 2 mm stone lower pole left kidney not causing obstruction. Federico Chapin MD Chest X-Ray 07/06/17 1412 Signed Impressions: Service Date/Time: June 14:24 - CONCLUSION: No acute disease. No significant change has occurred. Federico Chapin MD Objective Remarks GENERAL: NAD SKIN: Warm and dry. HEAD: Normocephalic. EYES: No scleral icterus. No injection or drainage. NECK: Supple, trachea midline. No JVD or lymphadenopathy. CARDIOVASCULAR: Regular rate and rhythm without murmurs, gallops, or rubs. RESPIRATORY: Breath sounds equal bilaterally. No accessory muscle use. GASTROINTESTINAL: Abdomen soft, non-tender, nondistended. MUSCULOSKELETAL: No cyanosis, or edema. BACK: Nontender without obvious deformity. No CVA tenderness. A/P Problem List: (1) Sepsis ICD Code: A41.9 Status: Acute (2) Dehydration ICD Code: E86.0 Status: Acute (3) NICK (acute kidney injury) ICD Code: N17.9 Status: Acute (4) Hyponatremia ICD Code: E87.1 Status: Acute (5) Diarrhea ICD Code: R19.7 Status: Acute (6) Tachycardia ICD Code: R00.0 Status: Acute Assessment and Plan 27-year-old female with Severe sepsis Unknown source Diarrhea times today therefore will discontinue C. difficile PCR Currently on Rocephin and vancomycin Cultures pending Lactic acidosis Likely secondary to above infectious process Acute renal failure Resolved with IV fluid hydration Hyponatremia Improving with IV fluid hydration Hypokalemia Replace electrolyte and monitor Problem Qualifiers (1) Sepsis: Qualified Code: A41.9 - Sepsis, due to unspecified organism Hebert Hugo MD Jul 07, 2017 15:19
--- NOTE | 2017-07-07 16:28 | EKG ---
Date Performed: 07/06/2017 Time Performed: 14:07:54 PTAGE: 27 years EKG: SINUS TACHYCARDIA, POSSIBLE ATRIAL FLUTTER Compared to previous tracing, the sinus tachycar noa is new. ABNORMAL RHYTHM ECG NO PREVIOUS TRACING DOCTOR: Rigo Cedeno Interpretating Date/Time 07/07/2017 16:27:14
[2017-07-07] MEDS: cefTRIAXone INJ 1,000 MG in SODIUM CHLORIDE 0.9% INJ 100 ML IV SCH (17:24)
[2017-07-08] VITALS: BP 107/62; PULSE 85; RESP 20; TEMP 97.7; O2SAT 98
[2017-07-08] MEDS: diphenhydrAMINE HCL 50 MG/ML VIAL IV PUSH PRN ×3 (03:06→11:25)
[2017-07-08] MEDS: HYDROmorphone HCL PF 2 MG/ML VIAL IVS PRN ×3 (03:06→11:27)
[2017-07-08] MEDS ORDERED: PHARMACY ORDERED LAB ONE (07:45)
[2017-07-08 08:00] VITALS: BP 118/77; PULSE 77; RESP 20; TEMP 97.1; O2SAT 96
[2017-07-08] MEDS: VANCOMYCIN INJ 1,500 MG in SODIUM CHLORID 0.9% 500 ML INJ 500 ML IV SCH (08:30)
[2017-07-08 08:55] LABS: ALKALINE PHOSPHATASE 100 U/L (45-117); ALT (GPT) 14 U/L (10-53); ANION GAP 6 MEQ/L (5-15); AST (GOT) 10 U/L (15-37); BICARBONATE 25.6 MEQ/L (21.0-32.0); BLOOD UREA NITROGEN 14 MG/DL (7-18); CHLORIDE 109 MEQ/L (98-107); GLOMERULAR FILTRATION RATE 103 ML/MIN (>89); SODIUM (NA) 141 MEQ/L (136-145); TOTAL BILIRUBIN ADULT 0.2 MG/DL (0.2-1.0)
[2017-07-08 09:12] LABS: POTASSIUM 2.9 MEQ/L (3.5-5.1)
[2017-07-08] MEDS: SODIUM CHLOR 0.9% 1000 ML INJ 1,000 ML IV SCH (09:42)
[2017-07-08] MEDS ORDERED: POTASSIUM CHLORIDE 20 MEQ CONTROLLED RELEASE TAB PO ONE (10:00)
--- NOTE | 2017-07-08 10:12 | HHI.PR ---
Subjective Remarks Follow-up severe sepsis 07/07/17-patient seen and examined, no diarrhea 2 days. Complains of back pain. Currently afebrile 07/08/17-patient seen and examined, afebrile 2 days and no diarrhea 3 days, stable and no acute event overnight Objective Vitals Vital Signs Date Time Temp Pulse Resp B/P Pulse Ox O2 Delivery O2 Flow Rate FiO2 07/08/17 08:00 97.1 77 20 118/77 96 07/08/17 00:00 97.7 85 20 107/62 98 07/07/17 20:00 96.5 97 20 120/79 98 07/07/17 16:00 99.1 98 24 111/56 96 07/07/17 14:15 98 35 111/56 07/07/17 14:15 98 07/07/17 13:30 96 45 07/07/17 13:10 99.4 94 38 108/56 07/07/17 12:40 94 07/07/17 12:00 107 07/07/17 10:16 99.3 96 24 105/48 95 I/O 07/07/17 07/07/17 07/07/17 07/08/17 07/08/17 07/08/17 07:00 15:00 23:00 07:00 15:00 23:00 Intake Total 2065 ml 2891 ml 720 ml 480 ml Output Total 1820 ml Balance 2065 ml 1071 ml 720 ml 480 ml Intake Oral 1275 ml 1280 ml 720 ml 480 ml IV Total 790 ml 1611 ml Output Urine Total 1820 ml # Voids 2 2 3 # Bowel Movements 0 0 0 1 Result Diagram: 07/07/17 0423 07/08/17 0815 Imaging Last Impressions Abdomen/Pelvis CT 07/06/17 1448 Signed Impressions: Service Date/Time: June 15:17 - CONCLUSION: Stable CT scan of the pelvis compared to the prior study of 06/20/2017. No acute abdominal or pelvic pathology. Tiny 2 mm stone lower pole left kidney not causing obstruction. Federico Chapin MD Chest X-Ray 07/06/17 1412 Signed Impressions: Service Date/Time: June 14:24 - CONCLUSION: No acute disease. No significant change has occurred. Federico Chapin MD Objective Remarks GENERAL: NAD SKIN: Warm and dry. HEAD: Normocephalic. EYES: No scleral icterus. No injection or drainage. NECK: Supple, trachea midline. No JVD or lymphadenopathy. CARDIOVASCULAR: Regular rate and rhythm without murmurs, gallops, or rubs. RESPIRATORY: Breath sounds equal bilaterally. No accessory muscle use. GASTROINTESTINAL: Abdomen soft, non-tender, nondistended. MUSCULOSKELETAL: No cyanosis, or edema. BACK: Nontender without obvious deformity. No CVA tenderness. Procedures None A/P Problem List: (1) Sepsis ICD Code: A41.9 Status: Acute (2) Dehydration ICD Code: E86.0 Status: Acute (3) NICK (acute kidney injury) ICD Code: N17.9 Status: Acute (4) Hyponatremia ICD Code: E87.1 Status: Acute (5) Diarrhea ICD Code: R19.7 Status: Acute (6) Tachycardia ICD Code: R00.0 Status: Acute Assessment and Plan 27-year-old female with Severe sepsis-resolved Unknown source Currently on Rocephin and vancomycin,as culture negative will discontinue vancomycin Culture negative to date Lactic acidosis Likely secondary to above infectious process Acute renal failure Resolved with IV fluid hydration Hyponatremia Improved with IV fluid hydration Hypokalemia Give potassium 80 mEq 1 now DVT prophylaxis: Bilateral SCDs Discharge Planning Likely discharge home today Problem Qualifiers (1) Sepsis: Qualified Code: A41.9 - Sepsis, due to unspecified organism Hebert Hugo MD Jul 08, 2017 10:12
[2017-07-08] MEDS ORDERED: CEPH-460 PO (10:14)
--- NOTE | 2017-07-08 10:18 | HHI.DS ---
Discharge Summary Admission Date Jul 06, 2017 at 16:00 Discharge Date: Jul 08, 2017 Admitting Diagnosis DEHYDRATION, SEPSIS (1) Sepsis ICD Code: A41.9 (2) Dehydration ICD Code: E86.0 (3) NICK (acute kidney injury) ICD Code: N17.9 (4) Hyponatremia ICD Code: E87.1 (5) Diarrhea ICD Code: R19.7 (6) Tachycardia ICD Code: R00.0 Procedures None Brief History - From Admission This 27-year-old female says she been sick for about 4 days with diarrhea, nausea and vomiting. She has a history of lupus and takes plaquenil. She has evidence of sepsis and has metabolic acidosis. She has hyponatremia and is very dehydrated. Patient says her stomach hurts and she has some nontender abdominal pain. She can only take morphine and Dilaudid per her report. She has multiple drug allergies. Patient's been admitted to the hospital due to signs and symptoms of sepsis and dehydration CBC/BMP: 07/07/17 0423 07/08/17 0815 Significant Findings Laboratory Tests Test 07/06/17 07/06/17 07/06/17 07/06/17 14:15 15:05 17:30 19:40 White Blood Count 26.4 TH/MM3 (4.0-11.0) Red Blood Count 5.40 MIL/MM3 (4.00-5.30) Hematocrit 47.5 % (35.0-46.0) Mean Corpuscular Hemoglobin 31.8 % Concent (32.0-36.0) Neutrophils (%) (Auto) 94.7 % (16.0-70.0) Lymphocytes (%) (Auto) 1.5 % (9.0-44.0) Neutrophils # (Auto) 25.0 TH/MM3 (1.8-7.7) Lymphocytes # (Auto) 0.4 TH/MM3 (1.0-4.8) Eosinophils # (Auto) 0.8 TH/MM3 (0-0.4) Sodium Level 129 MEQ/L (136-145) Potassium Level 3.2 MEQ/L (3.5-5.1) Chloride Level 97 MEQ/L (98-107) Carbon Dioxide Level 18.5 MEQ/L (21.0-32.0) Creatinine 1.20 MG/DL (0.50-1.00) Estimat Glomerular Filtration 53 ML/MIN (>89) Rate Total Bilirubin 1.2 MG/DL (0.2-1.0) Total Creatine Kinase 24 U/L (26-192) Albumin 2.7 GM/DL (3.4-5.0) Lactic Acid Level 4.2 mmol/L 2.8 mmol/L (0.4-2.0) (0.4-2.0) Urine Color [place] (YELLW/STRAW) Urine Specific [place] GREATER THAN 1.035 (1.002-1.035) Urine Protein 30 mg/dL (NEG-TRACE) Urine WBC 9-14 /hpf (0-5) Urine Squamous Epithelial 6-8 /hpf (0-5) Cells Urine Bacteria OCC /hpf (NONE) Test 07/07/17 07/08/17 04:23 08:15 White Blood Count 14.8 TH/MM3 (4.0-11.0) Red Blood Count 3.80 MIL/MM3 (4.00-5.30) Hemoglobin 10.9 GM/DL (11.6-15.3) Hematocrit 33.3 % (35.0-46.0) Neutrophils % (Manual) 82 % (16-70) Lymphocytes % 6 % (9-44) Neutrophils # (Manual) 12.9 TH/MM3 (1.8-7.7) Sodium Level 132 MEQ/L (136-145) Potassium Level 3.0 MEQ/L 2.9 MEQ/L (3.5-5.1) (3.5-5.1) Carbon Dioxide Level 19.7 MEQ/L (21.0-32.0) Estimat Glomerular Filtration 85 ML/MIN (>89) Rate Calcium Level 7.7 MG/DL 8.4 MG/DL (8.5-10.1) (8.5-10.1) Chloride Level 109 MEQ/L (98-107) Random Glucose 125 MG/DL (74-106) Aspartate Amino Transf 10 U/L (15-37) (AST/SGOT) Total Protein 5.8 GM/DL (6.4-8.2) Albumin 1.9 GM/DL (3.4-5.0) Imaging Last Impressions Abdomen/Pelvis CT 07/06/17 1448 Signed Impressions: Service Date/Time: June 15:17 - CONCLUSION: Stable CT scan of the pelvis compared to the prior study of 06/20/2017. No acute abdominal or pelvic pathology. Tiny 2 mm stone lower pole left kidney not causing obstruction. Federico Chapin MD Chest X-Ray 07/06/17 1412 Signed Impressions: Service Date/Time: June 14:24 - CONCLUSION: No acute disease. No significant change has occurred. Federico Chapin MD PE at Discharge GENERAL: NAD SKIN: Warm and dry. HEAD: Normocephalic. EYES: No scleral icterus. No injection or drainage. NECK: Supple, trachea midline. No JVD or lymphadenopathy. CARDIOVASCULAR: Regular rate and rhythm without murmurs, gallops, or rubs. RESPIRATORY: Breath sounds equal bilaterally. No accessory muscle use. GASTROINTESTINAL: Abdomen soft, non-tender, nondistended. MUSCULOSKELETAL: No cyanosis, or edema. BACK: Nontender without obvious deformity. No CVA tenderness. Hospital Course Patient admitted secondary to severe sepsis for which she was started on IV antibiotics with monitoring of cultures. She presented with multiple electrolyte abnormalities which were corrected accordingly prior to discharge. Her condition improved and vitals remained stable. Antibiotics will be escalated accordingly prior to discharge. Pt Condition on Discharge: Stable Discharge Disposition: Discharge Home Discharge Time: <= 30 minutes Discharge Instructions DIET: Follow Instructions for: Heart Healthy Diet Activities you can perform: Regular-No Restrictions Follow up Referrals: PCP Follow-up - 1 Week New Medications: Cephalexin (Keflex) 500 Mg Cap 500 MG PO Q8H Infection #15 Ref 0 CAP Potassium Chloride ER (Potassium Chloride ER) 20 Meq Tab 20 MEQ PO DAILY Electrolyte Replacement #10 Ref 0 TAB Continued Medications: Hydroxychloroquine (Plaquenil) 200 Mg Tab 200 MG PO DAILY Take with food #60 Ref 0 TAB Sertraline (Zoloft) 100 Mg Tab 200 MG PO DAILY #30 Ref 0 TAB Zolpidem (Ambien) 10 Mg Tab 10 MG PO HS PRN INSOMNIA Ref 0 TAB ([ controle]) 1 TAB PO DAILY Hebert Hugo MD Jul 08, 2017 10:18
[2017-07-08 11:23] LABS: VANCOMYCIN TROUGH 13.2 MCG/ML (5.0-10.0)
[2017-07-08 12:00] VITALS: BP 123/79; PULSE 79; RESP 20; TEMP 96.8; O2SAT 95
[2017-07-08 12:17] LABS: HEMATOCRIT 30.7 % (35.0-46.0); MEAN CELL VOLUME 87.4 FL (80.0-100.0); MEAN CORPUSCULAR HEMOGLOBIN 28.2 PG (27.0-34.0); MEAN CORPUSCULAR HGB CONC 32.2 % (32.0-36.0); PLATELET COUNT 327 TH/MM3 (150-450); RED BLOOD COUNT 3.51 MIL/MM3 (4.00-5.30); RED CELL DISTRIBUTION WIDTH 14.4 % (11.6-17.2); WHITE BLOOD COUNT 11.9 TH/MM3 (4.0-11.0)
[2017-07-08 12:25] LABS: HEMO FLAGS AUTO DIFF
[2017-07-08 12:44] LABS: BANDS 7 % (0-6); CORRECTED NUCLEATED RBC 1 /100 WBC (0-0); EOSINOPHILS 5 % (0-4); NEUTROPHIL # MANUAL DIFF 9.5 TH/MM3 (1.8-7.7); PLATELET ESTIMATE SMEAR NORMAL (NORMAL); PLATELET MORPHOLOGY NORMAL (NORMAL); POLYS (SEG NEUTROPHILS) 73 % (16-70); SCAN/DIFF FINAL DIFF MANUAL; WBC DIFF SAMPLE 100
[2017-07-08] MEDS ORDERED: POTA-163 PO (14:55)
[2017-07-11] MEDS ORDERED: ZOFR4TAB3 SL (14:53)
[2017-07-11] MEDS ORDERED: ZOLO100T PO (14:53)
== END 2017-07-08 15:20 | disposition home or self-care (01) | DRG 871 ==
LOC: PHED 13:59 → PHEDA 16:00 → PHICU 21:34 → PH3B 07-07 15:35
PROVIDERS: ADMIT Hospitalist; ATTEND Hospitalist
DX: A41.9 Sepsis, unspecified organism (principal); R65.21 Severe sepsis with septic shock; E87.2 Acidosis; N17.9 Acute kidney failure, unspecified; M32.9 Systemic lupus erythematosus, unspecified; E87.1 Hypo-osmolality and hyponatremia; E86.0 Dehydration; G47.00 Insomnia, unspecified; F32.9 Major depressive disorder, single episode, unspecified; E87.6 Hypokalemia; J45.909 Unspecified asthma, uncomplicated; F17.210 Nicotine dependence, cigarettes, uncomplicated
CPT/HCPCS: 71010; 74177; 80048; 80053; 80202; 81001; 82550; 83605; 83735; 84132; 85007; 85025; 85027; 87040; 87086; 93005; 96361; 96374; 96375; J0696; J1170; J1200; J2405; J2543; J2930; J3370; J7030; J7040; Q9967

== ENCOUNTER 2017-08-10 12:38 | Emergency (ER) | payer MEDICAID ==
[~2017-08-10 12:38] MED LIST changes: +AMBI10TA PO; +BIRTH CONTROLE PO; +CEPH-460 PO; +LACTCAP8 PO; -metroNIDAZOLE 500 MG INJ 100 ML IV SCH
[2017-08-10 12:45] VITALS: BP 122/78; PULSE 83; RESP 20; TEMP 98.2; O2SAT 97
[2017-08-10] MEDS ORDERED: SODIUM CHLOR 0.9% 1000 ML INJ 1,000 ML IV SCH (14:07)
[2017-08-10] MEDS ORDERED: FAMOTIDINE 20 MG/2 ML VIAL IV PUSH ONE (14:15)
[2017-08-10] MEDS ORDERED: ONDANSETRON HCL 4 MG/2 ML VIAL IVP ONE (14:15)
[2017-08-10] MEDS ORDERED: DICYCLOMINE HCL 10 MG CAP PO ONE (14:15)
[2017-08-10] MEDS ORDERED: SODIUM CHLORIDE 0.9% FLUSH 10 ML FLUSH IV FLUSH PRN (14:15)
--- NOTE | 2017-08-10 14:17 | PD ---
HPI Chief Complaint: GI Complaint Time Seen by Provider: 13:58 Travel History International Travel<30 days: No Contact w/Intl Traveler<30days: No Traveled to known affect area: No History of Present Illness HPI Patient is a 27-year-old female with history of Lupus who presents to emergency room with multiple complaints. Patient reports that for the past 4 days, she has been feeling nauseous and has been vomiting and having diarrhea. Patient reports a cramping sensation throughout her abdomen. Denies any recent travels/ sick contacts. No fever/chills. Reports that she feels dehydrated and would like to know if her potassium is low as she has required admission for hypokalemia in the past. Patient also reports that when she stands up, she feels a bulge out of her left lower abdomen, reports "I think that I have a hernia." Patient denies any vaginal discharge or bleeding . Reports that she has not been on any antibiotics recently. Patient reports that she has also been having intermittent left sided chest pain which last a few minutes at a time and then resolves on its own. Patient currently with no chest pain at this time. Patient denies any shortness of breath, diaphoresis with her symptoms. t PFSH Past Medical History Hx Anticoagulant Therapy: Yes (LOVENOX) Anemia: Yes Arthritis: Yes Asthma: Yes Autoimmune Disease: Yes (Lupus) Blood Disorders: No Anxiety: No Depression: No Heart Rhythm Problems: No Cancer: No Cardiovascular Problems: No High Cholesterol: No Chest Pain: No Congestive Heart Failure: No COPD: No Cerebrovascular Accident: No Diabetes: No Diminished Hearing: No Endocrine: No Gastrointestinal Disorders: No GERD: No Genitourinary: No Headaches: Yes Hepatitis: No Hiatal Hernia: No Heparin Induced Thrombocytopen: No Hypertension: Yes (Patient denies ) Immune Disorder: No Implanted Vascular Access Dvce: No Kidney Stones: No Musculoskeletal: Yes Neurologic: No Psychiatric: No Reproductive: No Respiratory: Yes (ASTHMA) Migraines: Yes Renal Failure: No Seizures: No Sickle Cell Disease: No Sleep Apnea: No Thyroid Disease: No Ulcer: No ?: Not LMP: NOW : 2 Para: 2 Ovarian Cysts: Yes Tubal Ligation: Yes Past Surgical History Abdominal Surgery: Yes AICD: No Arteriovenous Shunt: No Body Medical Devices: Hardware Lt. hip Cardiac Surgery: No Section: Yes (X's 2) Cholecystectomy: Yes Ear Surgery: No Endocrine Surgery: No Eye Surgery: No Genitourinary Surgery: Yes Gynecologic Surgery: Yes (C SECTION, TUBAL LIGATION) Insulin Pump: No Joint Replacement: No Neurologic Surgery: No Oral Surgery: Yes (TONSILLECTOMY) Pacemaker: No Thoracic Surgery: No Tonsillectomy: Yes Other Surgery: Yes (Cystoscopy, tissue removal arm abscess) Family History Family Hypercholesterolemia: Yes Social History Alcohol Use: Yes (Occ.) Tobacco Use: Yes (1/2 PPD) Substance Use: No Allergies-Medications (Allergen,Severity, Reaction): Coded Allergies: propoxyphene (Verified Allergy, Severe, rash, 08/10/17) cyclobenzaprine (Verified Allergy, Mild, Rash, 08/10/17) acetaminophen (Verified Allergy, Unknown, Rash, 08/10/17) hydrocodone (Verified Allergy, Unknown, Rash, 08/10/17) ibuprofen (Verified Allergy, Unknown, Rash, 08/10/17) naproxen (Verified Allergy, Unknown, Rash, 08/10/17) oxycodone (Verified Allergy, Unknown, Rash, 08/10/17) tramadol (Verified Allergy, Unknown, Rash, 08/10/17) Reported Meds & Prescriptions Reported Meds & Active Scripts Active Zofran Odt (Ondansetron Odt) 4 Mg Tab 4 Mg SL Q6HR PRN Probiotic (Lactobacillus Acidophilus) 1 Cap Cap 1 Cap PO TIDAC Bactrim DS (Sulfamethoxazole-Trimethoprim) 800-160 Mg Tab 1 Tab PO BID Potassium Chloride ER (Potassium Chloride) 20 Meq Tab 20 Meq PO DAILY Zofran Odt (Ondansetron Odt) 4 Mg Tab 4 Mg SL Q6HR PRN Zoloft (Sertraline HCl) 100 Mg Tab 200 Mg PO DAILY Keflex (Cephalexin) 500 Mg Cap 500 Mg PO Q8H Reported Ambien (Zolpidem Tartrate) 10 Mg Tab 10 Mg PO HS PRN [ controle] 1 Tab PO DAILY Plaquenil (Hydroxychloroquine Sulfate) 200 Mg Tab 200 Mg PO DAILY Take with food Review of Systems General / Constitutional: No: Fever Eyes: No: Visual changes HENT: No: Headaches Cardiovascular: Positive: Chest Pain or Discomfort, No: Palpitations, Irregular Rhythm, Tachycardia Respiratory: No: Cough, Shortness of Breath, Wheezing Gastrointestinal: Positive: Nausea, Vomiting, Diarrhea, No: Abdominal Pain, Constipation Genitourinary: No: Dysuria Musculoskeletal: No: Pain Skin: No Rash Neurologic: No: Weakness Psychiatric: No: Depression Endocrine: No: Polydipsia Hematologic/Lymphatic: No: Easy Bruising Physical Exam Narrative GENERAL: NAD SKIN: Focused skin assessment warm/dry. HEAD: Atraumatic. Normocephalic. EYES: Pupils equal and round. No scleral icterus. No injection or drainage. ENT: No nasal bleeding or discharge. Mucous membranes pink and moist. NECK: Trachea midline. No JVD. CARDIOVASCULAR: Regular rate and rhythm. No murmur appreciated. RESPIRATORY: No accessory muscle use. Clear to auscultation. Breath sounds equal bilaterally. GASTROINTESTINAL: Abdomen soft, non-tender, nondistended. Hepatic and splenic margins not palpable. Patient with reducible left lower abdominal hernia on exam , there are no signs of incarceration MUSCULOSKELETAL: No obvious deformities. No clubbing. No cyanosis. No edema. NEUROLOGICAL: Awake and alert. No obvious cranial nerve deficits. Motor grossly within normal limits. Normal speech. PSYCHIATRIC: Appropriate mood and affect; insight and judgment normal. Data Data Last Documented VS Vital Signs Date Time Temp Pulse Resp B/P (MAP) Pulse Ox O2 Delivery O2 Flow Rate FiO2 08/10/17 15:30 55 18 118/73 (88) 100 Room Air 08/10/17 12:45 98.2 Orders Orders Complete Blood Count With Diff (08/10/17 14:07) Comprehensive Metabolic Panel (08/10/17 14:07) Lipase (08/10/17 14:07) Urinalysis - C+S If Indicated (08/10/17 14:07) Iv Access Insert/Monitor (08/10/17 14:07) Ecg Monitoring (08/10/17 14:07) Ondansetron Inj (Zofran Inj) (08/10/17 14:15) Sodium Chlor 0.9% 1000 Ml Inj (Ns 1000 M (08/10/17 14:07) Sodium Chloride 0.9% Flush (Ns Flush) (08/10/17 14:15) Electrocardiogram (08/10/17 14:07) Chest, Single Ap (08/10/17 14:07) Famotidine Inj (Pepcid Inj) (08/10/17 14:15) Dicyclomine (Bentyl) (08/10/17 14:15) Ed Urine Pregnancytest Poc (08/10/17 14:07) Sodium Chlor 0.9% 1000 Ml Inj (Ns 1000 M (08/10/17 15:00) Cath For Specimen (08/10/17 15:52) Potassium Chloride (Kcl) (08/10/17 16:15) Potassium Chlor 20 Meq Premix (Kcl 20 Me (08/10/17 16:15) Labs Laboratory Tests Test 08/10/17 14:20 08/10/17 14:28 Urine Color YELLOW Urine Turbidity CLOUDY Urine pH 5.5 Urine Specific [place] 1.026 Urine Protein 30 mg/dL Urine Glucose (UA) NEG mg/dL Urine Ketones TRACE mg/dL Urine Occult Blood LARGE Urine Nitrite NEG Urine Bilirubin NEG Urine Leukocyte Esterase NEG Urine RBC 4-9 /hpf Urine Squamous Epithelial Cells 0-5 /hpf Urine Amorphous Sediment MANY Microscopic Urinalysis Comment CULT NOT INDICATED White Blood Count 7.2 TH/MM3 Red Blood Count 4.43 MIL/MM3 Hemoglobin 12.6 GM/DL Hematocrit 37.9 % Mean Corpuscular Volume 85.5 FL Mean Corpuscular Hemoglobin 28.5 PG Mean Corpuscular Hemoglobin Concent 33.3 % Red Cell Distribution Width 14.3 % Platelet Count 320 TH/MM3 Mean Platelet Volume 8.1 FL Neutrophils (%) (Auto) 66.2 % Lymphocytes (%) (Auto) 23.9 % Monocytes (%) (Auto) 5.9 % Eosinophils (%) (Auto) 0.8 % Basophils (%) (Auto) 3.2 % Neutrophils # (Auto) 4.8 TH/MM3 Lymphocytes # (Auto) 1.7 TH/MM3 Monocytes # (Auto) 0.4 TH/MM3 Eosinophils # (Auto) 0.1 TH/MM3 Basophils # (Auto) 0.2 TH/MM3 CBC Comment DIFF FINAL Differential Comment Blood Urea Nitrogen 5 MG/DL Creatinine 0.96 MG/DL Random Glucose 85 MG/DL Total Protein 7.9 GM/DL Albumin 3.3 GM/DL Calcium Level 8.8 MG/DL Alkaline Phosphatase 90 U/L Aspartate Amino Transf (AST/SGOT) 18 U/L Alanine Aminotransferase (ALT/SGPT) 18 U/L Total Bilirubin 0.4 MG/DL Sodium Level 140 MEQ/L Potassium Level 2.9 MEQ/L Chloride Level 108 MEQ/L Carbon Dioxide Level 23.9 MEQ/L Anion Gap 8 MEQ/L Estimat Glomerular Filtration Rate 69 ML/MIN Lipase 114 U/L MDM Medical Decision Making Medical Screen Exam Complete: Yes Emergency Medical Condition: Yes Medical Record Reviewed: Yes Interpretation(s) EKG at 1419: Sinus dillon at 54bpm, qt/qtc: 482/467, no acute st or t wave changes Vital Signs Date Time Temp Pulse Resp B/P (MAP) Pulse Ox O2 Delivery O2 Flow Rate FiO2 08/10/17 12:45 98.2 83 20 122/78 (93) 97 Differential Diagnosis Differential includes gastroenteritis, gastritis, electrolyte abnormality, chest wall strain, ACS though unlikely, UTI, ventral hernia Narrative Course Patient is a 27 -year-old female who presents to emergency room with multiple complaints. Patient reports that for the past 4 days, she has been having nausea, vomiting and diarrhea. Patient is having cramping abdominal pain - reports concern for electrolyte abnormality. Patient also reports that she has been having intermittent left-sided chest pain which is nonradiating in nature. Patient reports that she is unable to describe this chest pain, she is chest pain-free. She denies any cough, congestion, no history of ACS or arrhythmia in the past. Patient with no family history of early coronary artery disease. Patient was placed on a human resources benefits coordinator upon arrival to the emergency room. EKG was ordered. Lab work including LFTs ordered. Plan to hydrate with IV fluids and give antiemetics Patient does have a ventral hernia on exam, it is reducible with no signs of incarceration. Patient understands need to follow up with general surgery for outpatient surgical intervention of hernia. Vital Signs Date Time Temp Pulse Resp B/P (MAP) Pulse Ox O2 Delivery O2 Flow Rate FiO2 08/10/17 15:30 55 18 118/73 (88) 100 Room Air 08/10/17 12:45 98.2 83 20 122/78 (93) 97 Laboratory Tests Test 08/10/17 14:20 08/10/17 14:28 Urine Color YELLOW (YELLW/STRAW) Urine Turbidity CLOUDY (CLEAR) Urine pH 5.5 (5.0-8.5) Urine Specific [place] 1.026 (1.002-1.035) Urine Protein 30 mg/dL (NEG-TRACE) Urine Glucose (UA) NEG mg/dL (NEG) Urine Ketones TRACE mg/dL (NEG) Urine Occult Blood LARGE (NEG) Urine Nitrite NEG (NEG) Urine Bilirubin NEG (NEG) Urine Leukocyte Esterase NEG (NEG) Urine RBC 4-9 /hpf (0-3) Urine Squamous Epithelial Cells 0-5 /hpf (0-5) Urine Amorphous Sediment MANY Microscopic Urinalysis Comment CULT NOT INDICATED White Blood Count 7.2 TH/MM3 (4.0-11.0) Red Blood Count 4.43 MIL/MM3 (4.00-5.30) Hemoglobin 12.6 GM/DL (11.6-15.3) Hematocrit 37.9 % (35.0-46.0) Mean Corpuscular Volume 85.5 FL (80.0-100.0) Mean Corpuscular Hemoglobin 28.5 PG (27.0-34.0) Mean Corpuscular Hemoglobin Concent 33.3 % (32.0-36.0) Red Cell Distribution Width 14.3 % (11.6-17.2) Platelet Count 320 TH/MM3 (150-450) Mean Platelet Volume 8.1 FL (7.0-11.0) Neutrophils (%) (Auto) 66.2 % (16.0-70.0) Lymphocytes (%) (Auto) 23.9 % (9.0-44.0) Monocytes (%) (Auto) 5.9 % (0.0-8.0) Eosinophils (%) (Auto) 0.8 % (0.0-4.0) Basophils (%) (Auto) 3.2 % (0.0-2.0) Neutrophils # (Auto) 4.8 TH/MM3 (1.8-7.7) Lymphocytes # (Auto) 1.7 TH/MM3 (1.0-4.8) Monocytes # (Auto) 0.4 TH/MM3 (0-0.9) Eosinophils # (Auto) 0.1 TH/MM3 (0-0.4) Basophils # (Auto) 0.2 TH/MM3 (0-0.2) CBC Comment DIFF FINAL Differential Comment Blood Urea Nitrogen 5 MG/DL (7-18) Creatinine 0.96 MG/DL (0.50-1.00) Random Glucose 85 MG/DL (74-106) Total Protein 7.9 GM/DL (6.4-8.2) Albumin 3.3 GM/DL (3.4-5.0) Calcium Level 8.8 MG/DL (8.5-10.1) Alkaline Phosphatase 90 U/L (45-117) Aspartate Amino Transf (AST/SGOT) 18 U/L (15-37) Alanine Aminotransferase (ALT/SGPT) 18 U/L (10-53) Total Bilirubin 0.4 MG/DL (0.2-1.0) Sodium Level 140 MEQ/L (136-145) Potassium Level 2.9 MEQ/L (3.5-5.1) Chloride Level 108 MEQ/L (98-107) Carbon Dioxide Level 23.9 MEQ/L (21.0-32.0) Anion Gap 8 MEQ/L (5-15) Estimat Glomerular Filtration Rate 69 ML/MIN (>89) Lipase 114 U/L (73-393) Patient re-evaluated Patient feeling much better at this time. Abdomen is soft, nontender, nondistended, no peritoneal signs. I reviewed all labs and studies with patient in detail, patient will follow up with pcp and will return to ER as needed. Diagnosis Primary Impression: Nausea vomiting and diarrhea Additional Impressions: Dehydration Hypokalemia Patient Instructions: General Instructions Additional Instructions: Please follow up with your primary care doctor Return to ER as needed Please drink plenty of fluids Return to ER if symptoms worsen or progress Scripts Ondansetron Odt (Zofran Odt) 4 Mg Tab 4 MG SL Q6HR Y for Nausea/Vomiting, #30 TAB 0 Refills Prov: Analilia Cannon DO 08/10/17 Analilia Cannon DO Aug 10, 2017 14:17
--- NOTE | 2017-08-10 14:30 | RADRPT ---
EXAM DATE/TIME: 08/10/2017 14:09 [facility] COMPARISON: CHEST SINGLE AP, July 06, 2017, 14:24. INDICATIONS : Chest pain and vomiting for four days. MEDICAL HISTORY : Lupus. Renal calculi. Hypertension.Asthma SURGICAL HISTORY : Tubal ligation. Cholecystectomy. section.Left hip replacement ENCOUNTER: Initial ACUITY: 4 - 6 days PAIN SCORE: 5/10 LOCATION: Bilateral chest FINDINGS: A single view of the chest demonstrates the lungs to be symmetrically aerated without evidence of mas s, infiltrate or effusion. The cardiomediastinal contours are unremarkable. Osseous structures are intact. CONCLUSION: Normal examination. Kyler Tobar MD on August 10, 2017 at 14:29 Board Certified Radiologist. This report was verified electronically.
[2017-08-10 14:40] LABS: AUTOMATED NEUTROPHIL # 4.8 TH/MM3 (1.8-7.7); BASOPHIL # 0.2 TH/MM3 (0-0.2); BASOPHIL % 3.2 % (0.0-2.0); EOSINOPHIL # 0.1 TH/MM3 (0-0.4); EOSINOPHIL % 0.8 % (0.0-4.0); HEMATOCRIT 37.9 % (35.0-46.0); HEMO FLAGS DIFF FINAL; LYMPH % 23.9 % (9.0-44.0); LYMPHOCYTE # 1.7 TH/MM3 (1.0-4.8); MEAN CELL VOLUME 85.5 FL (80.0-100.0); MEAN CORPUSCULAR HEMOGLOBIN 28.5 PG (27.0-34.0); MEAN CORPUSCULAR HGB CONC 33.3 % (32.0-36.0); MONO % 5.9 % (0.0-8.0); NEUT % 66.2 % (16.0-70.0); PLATELET COUNT 320 TH/MM3 (150-450); RED BLOOD COUNT 4.43 MIL/MM3 (4.00-5.30); RED CELL DISTRIBUTION WIDTH 14.3 % (11.6-17.2); WHITE BLOOD COUNT 7.2 TH/MM3 (4.0-11.0)
[2017-08-10 14:40] LABS: BLOOD, URINE LARGE (NEG); GLUCOSE,URINE NEG (NEG); KETONE, URINE TRACE mg/dL (NEG); NITRITE,URINE NEG (NEG); PH, URINE 5.5 (5.0-8.5)
[2017-08-10 14:50] LABS: URINE COLOR YELLOW (YELLW/STRAW)
[2017-08-10 14:56] LABS: SQUAMOUS EPITHELIAL CELL URINE 0-5 /hpf (0-5)
[2017-08-10 14:57] LABS: COMMENT (UR) CULT NOT INDICATED; CULTURE IF INDICATED CULT NOT INDICATED
[2017-08-10] MEDS ORDERED: SODIUM CHLOR 0.9% 1000 ML INJ 1,000 ML IV ONE (15:00)
[2017-08-10 15:30] VITALS: BP 118/73; PULSE 55; RESP 18; O2SAT 100
[2017-08-10] MEDS ORDERED: ZOFR4TAB3 SL (15:48)
[2017-08-10 15:59] LABS: ALKALINE PHOSPHATASE 90 U/L (45-117); ALT (GPT) 18 U/L (10-53); ANION GAP 8 MEQ/L (5-15); AST (GOT) 18 U/L (15-37); BICARBONATE 23.9 MEQ/L (21.0-32.0); BLOOD UREA NITROGEN 5 MG/DL (7-18); CHLORIDE 108 MEQ/L (98-107); GLOMERULAR FILTRATION RATE 69 ML/MIN (>89); SODIUM (NA) 140 MEQ/L (136-145); TOTAL BILIRUBIN ADULT 0.4 MG/DL (0.2-1.0)
[2017-08-10 16:01] LABS: POTASSIUM 2.9 MEQ/L (3.5-5.1)
[2017-08-10] MEDS ORDERED: POTASSIUM CHLORIDE 10 MEQ CONTROLLED RELEASE TAB PO ONE (16:15)
[2017-08-10] MEDS ORDERED: POTASSIUM CHLOR 20 MEQ PREMIX 100 ML IV ONE (16:15)
[2017-08-10 16:48] VITALS: BP 120/78
--- NOTE | 2017-08-11 12:23 | EKG ---
Date Performed: 08/10/2017 Time Performed: 14:19:35 PTAGE: 27 years EKG: SINUS BRADYCARDIA WITH SINUS ARRHYTHMIA BORDERLINE ECG Compared to PREVIOUS TRACING , sinus arrhythmia is new. PREVIOUS TRACIN07/06/2017 14.07 DOCTOR: James Acuña Interpretating Date/Time 08/11/2017 12:21:54
[2017-08-16] MEDS ORDERED: POTA-163 PO (15:42)
== END 2017-08-10 16:50 | disposition home or self-care (01) ==
LOC: PHED 12:38
DX: R11.2 Nausea with vomiting, unspecified (principal); R19.7 Diarrhea, unspecified; E86.0 Dehydration; E87.6 Hypokalemia; F17.200 Nicotine dependence, unspecified, uncomplicated
CPT/HCPCS: 71010; 80053; 81001; 83690; 84703; 85025; 93005; 96361; 96374; 96375; 99285; J2405; J3480; J7030

== ENCOUNTER 2018-01-19 05:35 | Observation (INO) | payer OTHER ==
[~2018-01-19] VITALS: Ht 182.9 cm; Wt 83.1 kg
[2018-01-19] MEDS ORDERED: SODIUM CHLORID 0.9% 500 ML IV PRN (06:15)
[2018-01-19] MEDS ORDERED: CHLORHEXIDINE GLUCONATE 2 % 1 PACK (2 CLOTHS) TOPICAL PRN (06:15)
[2018-01-19] MEDS ORDERED: LACTATED RINGER'S 1000 ML IV PRN (06:15)
[2018-01-19] MEDS ORDERED: POVIDONE IODINE 5% (ANTISEPSIS KIT) 4 APPLICATIONS EACH NARE PRN (06:15)
[2018-01-19] MEDS ORDERED: ACETAMINOPHEN 1000 MG/100 ML 100 ML IV SCH (06:15)
[2018-01-19] MEDS ORDERED: ceFAZolin 2 GM PREMIX 50 ML IV SCH (06:15)
[2018-01-19] MEDS ORDERED: METOPROLOL TARTRATE 25 MG TAB PO PRN (06:15)
[2018-01-19] MEDS ORDERED: INSULIN HUMAN REGULAR 1,000 UNITS/10 ML VIAL SQ PRN (06:15)
[2018-01-19] MEDS ORDERED: BUPR100CR PO (06:20)
[2018-01-19] MEDS ORDERED: BUPIVACAINE/EPINEPHRINE 0.5% PF 30 ML VIAL ONE (06:45)
[2018-01-19] MEDS ORDERED: LIDOCAINE HCL 1% PF 5 ML AMPULE ONE (07:05)
[2018-01-19] MEDS ORDERED: MIDAZOLAM HCL 2 MG/2 ML VIAL ONE (07:05)
[2018-01-19] MEDS ORDERED: BUPIVACAINE LIPOSOME PF 1.3% 20 ML VIAL ONE (07:06)
[2018-01-19] MEDS ORDERED: VANCOMYCIN INJ 1,250 MG in SODIUM CHLOR 0.9% 250 ML INJ 250 ML IV SCH (07:15)
[2018-01-19] MEDS ORDERED: BUPIVACAINE/EPINEPHRINE 0.25% 50 ML VIAL ONE (07:18)
[2018-01-19] MEDS ORDERED: FAT EMULSION 20% INJ 0 ML ONE (07:45)
[2018-01-19] MEDS ORDERED: HYDROmorphone HCL PF 2 MG/ML VIAL ONE (07:53)
[2018-01-19] MEDS ORDERED: SUGAMMADEX SODIUM 200 MG/2 ML VIAL IV PUSH ONE (09:49)
[2018-01-19 09:50] LABS: AMORPHOUS SEDIMENT, URINE MOD; BILIRUBIN, URINE NEG (NEG); BLOOD, URINE NEG (NEG); GLUCOSE,URINE NEG (NEG); HYALINE CAST, URINE 2 /lpf (RARE); KETONE, URINE NEG (NEG); MUCUS URINE MOD /lpf (OCC); NITRITE,URINE NEG (NEG); PH, URINE 6.5 (5.0-8.5); SQUAMOUS EPITHELIAL CELL URINE 1 /hpf (0-5); URINE COLOR YELLOW (YELLW/STRAW); URINE LEUKOCYTE ESTERASE NEG (NEG)
[2018-01-19] MEDS ORDERED: DO NOT ADM ANY ANTICOAGULANT DRUGS PRN (10:12)
[2018-01-19] MEDS ORDERED: SODIUM CHLORIDE 0.9% FLUSH 10 ML FLUSH IV FLUSH PRN (10:15)
[2018-01-19] MEDS ORDERED: Post-op Orders (for Pharmacy) XX ONE (10:15)
[2018-01-19] MEDS ORDERED: NALOXONE HCL 0.4 MG/ML AMP IV PUSH PRN (10:15)
[2018-01-19] MEDS ORDERED: ONDANSETRON HCL 4 MG/2 ML VIAL IV PUSH PRN (10:15)
[2018-01-19] MEDS ORDERED: diphenhydrAMINE HCL 50 MG/ML VIAL IV PUSH PRN (10:15)
--- NOTE | 2018-01-19 10:16 | PD.OP ---
cc: Alejandro Toussaint MD Operative Report Date of Surgery: Jan 19, 2018 Preoperative Diagnosis: (1) Ventral incisional hernia Postoperative Diagnosis: (1) Ventral incisional hernia Procedure: Laparoscopic incisional hernia repair (4x4cm defect) with 6x[address] mesh using ECHO deployment system Anesthesia: GEN Surgeon: Alejandro Toussaint Coating And Baking Operator(s): Poppy SHINE Operation and Findings: EBL: 10cc Operative findings: 4x4 cm incisional hernia at site of pfannensteil incision. 6x8" ventralight ST placed using ECHO deployment system. Seizure in detail: The patient was taken to the operating room and placed in the supine position. Gen. endotracheal anesthesia was induced and the abdomen was prepped and draped in usual sterile fashion. Ioban was placed. A surgical timeout was performed to verify correct patient procedure and site. Preoperative antibiotics were administered. Local anesthetic was injected in the skin and subcutaneous tissue in the left upper abdomen the abdomen was entered using the Optiview trocar with the laparoscope in place. The abdomen was insufflated to 15 mmHg with CO2 gas which the patient tolerated well. Two 5 mm ports were placed in the right lateral abdomen and a 12 mm port in the right upper abdomen. The patient was placed in Trendelenburg position. Attention was turned to the suprapubic area. At the site of her previous Pfannenstiel incision to the left of midline there was a 4 x 4 centimeter fascial defect. Using the Harmonic scalpel, the peritoneum was taken down from a few centimeters cephalad of the defect, through the defect including the hernia sac, and down to the pubis and Néstor's ligaments bilaterally. The epigastric vessels were identified laterally and this was the lateral extent of the preperitoneal dissection. A 6 x 8" ventralight ST mesh was chosen and placed in the abdomen utilizing the echo deployment system. The mesh was brought up to the abdominal wall through a separate small stab incision just superior to the fascial defect. It was oriented vertically. The insufflation was decreased to 12 mmHg. Secure strap tacker was used to to initially tacked the mesh to Néstor's ligament bilaterally. Tacks were placed in each of the 4 corners and the support structure was removed from the abdomen. The mesh was then tacked in place circumferentially and randomly in the midportion of the mesh to secure it to the abdominal wall. There is some bleeding superiorly from one of the epigastric vessels after tack placement. Pressure was held at this site from externally as well as internally with a Ray-Christiano for about 3 minutes and hemostasis was achieved. There was wide coverage of the entire fascial defect. Inferiorly, the peritoneum was brought up and tacked in place to cover about the inferior half of the mesh. At this point the abdomen was allowed to desufflate and the trochars were removed. The fascia at the right upper quadrant incision was closed with 0 Vicryl suture. Skin closed with subcuticular 4-0 Monocryl and Dermabond. Abdominal binder is applied. The patient tolerated the procedure well and is extubated and taken to PACU in stable condition. Alejandro Toussaint MD Jan 19, 2018 10:16
[2018-01-19] MEDS: LACTATED RINGER'S 1000 ML INJ 1,000 ML IV SCH ×2 (10:32→20:06)
[2018-01-19] MEDS ORDERED: *morphine SULFATE 4 MG/ML PERIprocedure ONLY ONE (11:09)
[2018-01-19] MEDS ORDERED: DEXAMETHASONE SOD PHOS 4 MG/ML VIAL IV ONE (12:00)
[2018-01-19] MEDS ORDERED: LIDOCAINE HCL 1% PF 5 ML SYRINGE OTHER ONE (12:00)
[2018-01-19] MEDS ORDERED: ROCURONIUM INJ 50 MG/5 ML SYRINGE IV PUSH ONE (12:00)
[2018-01-19] MEDS ORDERED: ONDANSETRON HCL 4 MG/2 ML VIAL IV PUSH ONE (12:00)
[2018-01-19] MEDS ORDERED: PROPOFOL 200 MG/20 ML AMP IV ONE (12:00)
[2018-01-19] MEDS ORDERED: PHENYLEPH/NS 1000 MCG/10 ML SYR IV ONE (12:00)
[2018-01-19] MEDS: HYDROmorphone HCL 2 MG TAB PO PRN ×2 (12:40→20:05)
[2018-01-19 13:16] VITALS: BP 110/69; PULSE 103; RESP 19; TEMP 97; O2SAT 99
[2018-01-19 16:00] VITALS: BP 111/56; PULSE 69; RESP 19; TEMP 98.2; O2SAT 95
[2018-01-19] MEDS: HYDROmorphone HCL PF 2 MG/ML VIAL IV PUSH PRN ×2 (16:47→22:32)
[2018-01-19 19:58] VITALS: O2SAT 99
[2018-01-19 20:00] VITALS: BP 107/56; PULSE 59; RESP 18; TEMP 98.5; O2SAT 93
[2018-01-19] MEDS: SODIUM CHLORIDE 0.9% FLUSH 10 ML FLUSH IV FLUSH SCH (20:06)
[2018-01-20] VITALS: BP 111/56; PULSE 70; RESP 18; TEMP 98.1; O2SAT 93
[2018-01-20] MEDS: HYDROmorphone HCL 2 MG TAB PO PRN ×5 (00:33→21:22)
[2018-01-20] MEDS: HYDROmorphone HCL PF 2 MG/ML VIAL IV PUSH PRN ×4 (02:30→19:13)
[2018-01-20] MEDS: LACTATED RINGER'S 1000 ML INJ 1,000 ML IV SCH ×2 (05:25→17:07)
[2018-01-20 08:00] VITALS: BP 116/55; PULSE 67; RESP 15; TEMP 98; O2SAT 91
[2018-01-20] MEDS: SODIUM CHLORIDE 0.9% FLUSH 10 ML FLUSH IV FLUSH SCH ×2 (08:18→21:00)
[2018-01-20 12:00] VITALS: BP 109/62; PULSE 52; RESP 16; TEMP 96.4; O2SAT 95
[2018-01-20 16:00] VITALS: BP 113/58; PULSE 75; RESP 16; TEMP 97.1; O2SAT 95
--- NOTE | 2018-01-20 17:17 | HHI.PR ---
Subjective Subjective Notes pt c/o abd pain no n/v Objective Vitals/I&O Vital Signs Date Time Temp Pulse Resp B/P (MAP) Pulse Ox O2 Delivery O2 Flow Rate FiO2 01/20/18 16:00 97.1 75 16 113/58 (76) 95 01/19/18 19:58 Nasal Cannula 2.00 Labs Date/Time Source Procedure Growth Status 01/19/18 08:25 Urine Other Urine Culture - Preliminary NO GROWTH IN 24 HOURS. Resulted Abdomen: Post-op tenderness Extremities: Perfused Wound Wound : Wound Location: Abdomen Appearance: Clean & Dry A/P Assessment and Plan pt s/p lap repair incisional hernia POD #1 pt doing well advance to reg diet possible d/c in am Lito Daniel MD Jan 20, 2018 17:17
[2018-01-20 20:00] VITALS: BP 120/67; PULSE 80; RESP 19; TEMP 96.4; O2SAT 93
[2018-01-21] VITALS: BP 122/69; PULSE 106; RESP 19; TEMP 96.2; O2SAT 95
[2018-01-21] MEDS: HYDROmorphone HCL PF 2 MG/ML VIAL IV PUSH PRN ×3 (00:09→08:16)
[2018-01-21] MEDS: HYDROmorphone HCL 2 MG TAB PO PRN ×2 (01:45→06:17)
[2018-01-21] MEDS: LACTATED RINGER'S 1000 ML INJ 1,000 ML IV SCH (03:49)
[2018-01-21] MEDS: SODIUM CHLORIDE 0.9% FLUSH 10 ML FLUSH IV FLUSH SCH (07:51)
[2018-01-21 08:00] VITALS: BP 107/68; PULSE 85; RESP 14; TEMP 98.5; O2SAT 95
[2018-01-21 09:02] VITALS: RESP 18
[2018-01-21 09:26] VITALS: O2SAT 98
--- NOTE | 2018-01-21 11:30 | HHI.PR ---
Subjective Subjective Notes pt comfortable no n/v no flatus Objective Vitals/I&O Vital Signs Date Time Temp Pulse Resp B/P (MAP) Pulse Ox O2 Delivery O2 Flow Rate FiO2 01/21/18 09:26 98 Nasal Cannula 2.00 01/21/18 09:02 18 01/21/18 08:00 98.5 85 107/68 (81) Labs Date/Time Source Procedure Growth Status 01/19/18 08:25 Urine Other Urine Culture - Final NO GROWTH IN 48 HOURS. Complete Abdomen: Post-op tenderness Extremities: Perfused Wound Wound : Wound Location: Abdomen Appearance: Clean & Dry A/P Assessment and Plan pt s/p lap repair incisional hernia POD # pt doing well D/C home Lito Daniel MD Jan 21, 2018 11:30
[2018-01-21] MEDS ORDERED: DILA2TAB4 PO (11:32)
== END 2018-01-21 16:38 | disposition home or self-care (01) ==
LOC: INTOOBSV 05:35 → HSDI 05:35 → UNDOADMOB 05:35 → HSDI 10:07 → N07B 12:39 → HSDI 12:39 → N07B 12:39 → UNDODISOB 01-21 16:38
PROVIDERS: ADMIT Surgery; ATTEND Surgery
DX: K43.2 Incisional hernia without obstruction or gangrene (principal)
CPT/HCPCS: 00832; 49654; 64425; 81001; 87086; 94150; 96374; 96376; C1781; C9290; G0378; J1100; J1170; J2250; J2270; J2370; J2405; J3010; J3370; J7050; J7120